=== PATIENT | male | born 1985 | race Caucasian/White ===

== ENCOUNTER 2018-03-31 13:51 | Emergency (ER) | payer OTHER, SELFPAY ==
--- NOTE | 2018-03-31 14:02 | NUR.NOTE ---
yesterday at 1700 pt began to feel weak and developed a fervor PT is unsure of temp. this morning temp was 102F current temp at 1404 is 39.2 no nausea or vomiting
[2018-03-31 14:05] VITALS: BP 122/82; PULSE 132; RESP 15; TEMP 39.2; O2SAT 93
[2018-03-31] MEDS: Acetaminophen 500 MG TAB (14:15)
--- NOTE | 2018-03-31 16:01 | ED.GENADUL_ITS ---
Discharge Plan Disposition Patient Disposition: HOME Condition: Good Discharge Details Chief Complaint: GenMedical Clinical Impression: URI (upper respiratory infection) Primary Care Provider: Dina Chatterjee ED Provider: Lucho Garcia Home Meds and New Rx's Prescriptions: No Action montelukast [Singulair] 10 MG tablet 10 mg PO DAILY RF: 0 atorvastatin 20 mg Tablet 20 mg PO DAILY RF: 0 ProAir HFA 90 mcg/actuation Hfa Aerosol Inhaler 1 puff Inhalation BID RF: 0 Spiriva with HandiHaler 18 mcg Capsule, W/Inhalation Device 1 puff Inhalation PRN PRNRF: 0 Asmanex Twisthaler 220 mcg (14 doses) Aerosol Powdr Breath Activated 2 puff Inhalation BID RF: 0 Symbicort 160-4.5 mcg/actuation Hfa Aerosol Inhaler 1 puff Inhalation DAILY RF: 0 Discharge Instructions Instructions: Upper Respiratory Infection (ED) Additional Instructions: Please take 1000 mg of Tylenol every 6 hours, and 800 mg of ibuprofen every 6 hours for improvement of your symptoms. Please drink 12 cups of fluids daily at minimum . Please continue to use your inhalers as directed. if you notice any worsening of your symptoms, or any new symptoms such as neck pain, headache, vomiting, diarrhea, fever, chills, shortness of breath, chest pain, numbness, weakness, or fainting , please return immediately to the emergency department for reevaluation. Please follow up with your primary care provider as soon as possible for reassessment and reevaluation. As always, it was a pleasure participating in your medical care today. Referrals: Dina Chatterjee [Primary Care Provider] - Medical Decision Making This is a 32-year-old male with past medical history of asthma, who presents today for aches, myalgias, fever and chills. He does have other sick contacts at home with similar symptoms. Physical exam demonstrates no red flags concerning for meningitis, no signs of strep throat. No concerning lung sounds. No evidence of significant hypoxia, tachypnea, or difficulty breathing. On the patient's arrival he was given acetaminophen, and now he is feeling much better. He states that his aches, pains and myalgias have completely resolved. He states that he feels ready to go home, and would like to be discharged. With no concerning physical exams or historical findings concerning for severe concerning infection I do feel this is reasonable. Patient's influenza has returned negative, so he is not a candidate for Tamiflu. Recommend continued fluids, Tylenol and Motrin for fever, and close follow-up with his PCP. We discussed red flags which to immediately return and the patient understands. I have extensively reviewed the treatment plan and discharge instructions with the patient. I have addressed all patient concerns at this time. The patient was made aware of what symptoms to monitor for that would warrant a return to the emergency department. Discussed the plan with the patient, they demonstrate verbal understanding and agreement with our assessment and plan at this time. HPI General Date/Time Provider Initiated Documentation: 03/31/18 15:48 . HPI Narrative: This is a 32-year-old male with no past medical history except for asthma, who presents today for evaluation of fever, aches, myalgias that started today. He has a friend with similar symptoms. He does admit to a fever, he has not taken any antipyretic. He denies any nausea, vomiting, diarrhea, chest p ain, shortness of breath, numbness, tingling, or weakness. He does admit to mild cough that started this morning as well, but it is nonproductive. He denies any recent antibiotic use or hospitalization. He denies any other complaints at this time. He denies any recent surgeries, IV or illicit drug use or pertinent family history. Related Data Home Medications Medication Instructions Recorded Confirmed montelukast [Singulair] 10 mg PO DAILY 12/12/16 03/31/18 albuterol sulfate [ProAir HFA] 1 puff INHALATION BID 03/31/18 03/31/18 atorvastatin 20 mg PO DAILY 03/31/18 03/31/18 budesonide-formoterol [Symbicort] 1 puff INHALATION DAILY 03/31/18 03/31/18 mometasone [Asmanex Twisthaler] 2 puff INHALATION BID 03/31/18 03/31/18 tiotropium bromide [Spiriva with 1 puff INHALATION PRN PRN 03/31/18 03/31/18 HandiHaler] Allergies Allergy/AdvReac Type Severity Reaction Status Date / Time Penicillins Allergy Intermediate Hives Unverified 03/31/18 14:07 General Stated Complaint: GenMedical JUS: 3 Review of Systems Review of Systems All systems reviewed & are unremarkable except as noted in HPI and below PFSH Social History Smoking/Tobacco Use Status: Former Tobacco Use Exam Narrative Exam Narrative: 1.Const: Well-nourished, Well-developed, appearing stated age 2.Eyes: PERRL, no conjunctival injection, and symmetrical lids. 3.ENT: Atraumatic external nose and ears. Moist MM. Neck: Symmetric, trachea midline, No thyromegaly. Patient demonstrates good movement of cervical neck. There is no nuchal rigidity, no nuchal tenderness. Patient is able to flex the neck without any difficulty or significant pain. Negative Kernig's and Brudzinski sign. No significant erythema in the posterior oropharynx. No sinus tenderness. Minimal runny nose. 4.CVS: +S1/S2, No murmurs or gallops. Peripheral pulses 2+ and equal in all extremities. Brisk capillary refill in all extremities. 5.RESP: Unlabored respiratory effort. Clear to auscultation bilaterally. No wheezes rales or rhonchi 6.GI: Soft, Nontender/Nondistended, No hepatosplenomegaly. No guarding or rebound. 7.MSK: Normocephalic/Atraumatic, Extremities w/o deformity or ttp No cyanosis or clubbing, Normal movement of all extremities. No calf tender 8.Skin: Warm, Dry. No rashes or lesions. 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 Sensation grossly intact, no focal neurologic deficits. 10.Psych: (AAO) x3. Appropriate mood and affect Course Vital Signs Temperature 39.2 C H 03/31/18 14:05 Pulse 132 H 03/31/18 14:05 Respiratory Rate 15 03/31/18 14:05 Blood Pressure 122/82 03/31/18 14:05 Pulse Oximetry 93 L 03/31/18 14:05 Temperature 39.2 C H 03/31/18 14:05 Temperature Source Skin 03/31/18 14:05 Pulse 132 H 03/31/18 14:05 Respiratory Rate 15 03/31/18 14:05 Respiratory Effort 03/31/18 14:13 Blood Pressure 122/82 03/31/18 14:05 Blood Pressure Position Sitting 03/31/18 14:05 Pulse Oximetry 93 L 02/02/19 14:05 Oxygen Delivery Method Room Air 03/31/18 14:05 Oxygen Flow Rate 0 03/31/18 14:05 Pain Level 3 03/31/18 14:05 Lab/Test Results Lab/Test Results: 03/31/18 14:20 Nasopharynx Influenza Types A,B Antigen - Final
[2018-03-31 16:14] VITALS: RESP 16
== END 2018-03-31 16:13 | disposition home or self-care (01) ==
PROVIDERS: Emergency Provider Student in an Organized Health Care Education/Training Program
DX: J06.9 Acute upper respiratory infection, unspecified (principal); J45.909 Unspecified asthma, uncomplicated
CPT/HCPCS: 87449; 99282

== ENCOUNTER 2018-08-14 06:21 | Emergency (ER) | payer OTHER, SELFPAY ==
[2018-08-14 06:24] VITALS: BP 146/97; PULSE 84; RESP 16; TEMP 37.1; O2SAT 98
--- NOTE | 2018-08-14 06:44 | ED.GENADUL_ITS ---
Discharge Plan Disposition Patient Disposition: HOME Condition: Improving Discharge Details Chief Complaint: RespSymp Clinical Impression: Acute bronchitis Primary Care Provider: Dina Chatterjee ED Provider: Rasta Kramer Home Meds and New Rx's Prescriptions: New prednisone 20 mg tablet 40 mg PO DAILY 5 Days Qty: 10 RF: 0 azithromycin 250 mg tablet See Rx Instructions .ROUTE .COMPLEX Qty: 6 RF: 0 No Action montelukast [Singulair] 10 MG tablet 10 mg PO DAILY RF: 0 atorvastatin 20 mg Tablet 20 mg PO DAILY RF: 0 albuterol sulfate [ProAir HFA] 90 mcg/actuation Hfa Aerosol Inhaler 1 puff Inhalation BID RF: 0 Spiriva with HandiHaler 18 mcg Capsule, W/Inhalation Device 1 puff Inhalation PRN PRNRF: 0 Asmanex Twisthaler 220 mcg (14 doses) Aerosol Powdr Breath Activated 2 puff Inhalation BID RF: 0 Symbicort 160-4.5 mcg/actuation Hfa Aerosol Inhaler 1 puff Inhalation DAILY RF: 0 Discharge Instructions Instructions: Acute Bronchitis (ED) Additional Instructions: Return for recheck if you have difficulty breathing, using the inhaler every 2 hours, or any other acute concerns. Take medications as prescribed. Continue your regular medications. Home to rest today Medical Decision Making 33-year-old male with a history of emphysema, who presents from home with 4 to 5 days of cough, congestion, production of sputum with mild increase in his use of inhaler. He is afebrile, well-appearing, oxygenating normally, without wheeze on exam. Does appear to have acute bronchitis and describes a mild component of bronchospasm. I will place him on a course of azithromycin and prednisone. He is stable and appropriate for discharge to home. He understands return precautions to the ED. He will follow-up with the [place] if needed for recheck. HPI General Mode of arrival: ambulatory . Date/Time Provider Initiated Documentation: 08/14/18 06:37 . Limitations to Documentation: no limitations . Information obtained by: patient . History of Present Illness 33 year old M presents to the emergency department with the chief complaint of Cough, congestion, production of sputum, mild wheeze, described as moderate and similar to prior episodes, Quality is described as constant, and is localized to the chest. Patient reports no radiation. Patient started experiencing this day(s) and it has been constant. No relieving factors improve symptom(s), No exacerbating factors reported . Patient notes cough; denies fever/chills and shortness of breath. Patient did receive the following treatments prior to arrival, none Related Data Home Medications Medication Instructions Recorded Confirmed montelukast [Singulair] 10 mg PO DAILY 12/12/16 08/14/18 albuterol sulfate [ProAir HFA] 1 puff INHALATION BID 03/31/18 08/14/18 atorvastatin 20 mg PO DAILY 03/31/18 08/14/18 budesonide-formoterol [Symbicort] 1 puff INHALATION DAILY 03/31/18 08/14/18 mometasone [Asmanex Twisthaler] 2 puff INHALATION BID 03/31/18 08/14/18 tiotropium bromide [Spiriva with 1 puff INHALATION PRN PRN 03/31/18 08/14/18 HandiHaler] azithromycin See Rx Instructions .ROUTE 08/14/18 .COMPLEX #6 tab prednisone 40 mg PO DAILY 5 Days #10 tab 08/14/18 Previous Rx's Medication Instructions Recorded azithromycin See Rx Instructions .ROUTE 08/14/18 .COMPLEX #6 tab prednisone 40 mg PO DAILY 5 Days #10 tab 08/14/18 Allergies Allergy/AdvReac Type Severity Reaction Status Date / Time Penicillins Allergy Intermediate Hives Unverified 08/14/18 06:27 General Stated Complaint: RespSymp JUS: 4 Review of Systems Review of Systems No chest pain, no difficulty breathing, no recent travel. 6 systems reviewed and otherwise negative [facility] Medical History Emphysema lung (Acute) Asthma (Chronic) Social History Smoking/Tobacco Use Status: Former Tobacco Use Alcohol Intake: current Alcohol Intake frequency: holidays/special occasions only Drug use: Socially Substance use type: marijuana Do you feel safe in your relationship?: Yes Additional Social history: pt is not alone to assess privately Exam Narrative Exam Narrative: GEN: awake, alert, oriented 3. Pleasant, well groomed, interactive. HEAD: Normocephalic, atraumatic ENT: Mucous membranes moist, oropharynx unremarkable, External ear exam unremarkable EYES: PERRL, EOMI NECK: Full ROM, no ELEN, no menigismus CHEST/RESP: Nontender, clear to auscultation bilateral, no wheeze/rhonchi/rales CARDIOVASCULAR: RRR, no murmur, rub derrick. 2+ Rad pulse bilateral ABDOMEN: Soft, nontender, no mass. +Bowel sounds EXT: Full ROM, no edema, no rash Neuro: Grossly normal neurologic exam, conversant, interactive. Psych: Speech fluent, thoughts congruent, affect normal Course Vital Signs Temperature 37.1 C 08/14/18 06:24 Pulse 84 08/14/18 06:24 Respiratory Rate 16 08/14/18 06:24 Blood Pressure 146/97 H 08/14/18 06:24 Pulse Oximetry 98 08/14/18 06:24 Temperature 37.1 C 08/14/18 06:24 Temperature Source Skin 08/14/18 06:24 Pulse 84 08/14/18 06:24 Respiratory Rate 16 08/14/18 06:24 Respiratory Effort Non-Labored 08/14/18 06:29 Respiratory Depth Normal 08/14/18 06:29 Blood Pressure 146/97 H 08/14/18 06:24 Pulse Oximetry 98 08/14/18 06:24 Pain Level 2 08/14/18 06:24
== END 2018-08-14 06:49 | disposition home or self-care (01) ==
PROVIDERS: Emergency Provider Emergency Medicine
DX: J20.9 Acute bronchitis, unspecified (principal); Z87.891 Personal history of nicotine dependence
CPT/HCPCS: 99283

== ENCOUNTER 2020-05-16 08:58 | Emergency (ER) | payer OTHER, SELFPAY ==
[2020-05-16] VITALS (46 sets, daily range): BP systolic 116–149; BP diastolic 55–98; PULSE 84–131; RESP 7–24; TEMP 37.3–38.3; O2SAT 93–100
--- NOTE | 2020-05-16 09:30 | DI.RAD_ITS ---
EXAM: XR PORTABLE CHEST AP CLINICAL HISTORY: cough, fever. TECHNIQUE: 2D digital imaging was performed. COMPARISON: CR CHEST 2 VIEWS PA,LAT from 12/12/2016 FINDINGS: Heart size is normal. The mediastinum is not widened. There are no new infiltrates nor pleural effusions. No pneumothorax. No pulmonary edema. IMPRESSION: No acute pulmonary findings on this single AP portable view of the chest. DATA REPOSITORY: RADIATION DOSE DELIVERED:
--- NOTE | 2020-05-16 09:34 | ED.GENADUL_ITS ---
Discharge Plan Disposition Patient Disposition: HOME Condition: Good Discharge Details Clinical Impression: COVID-19 Primary Care Provider: Dina Chatterjee ED Provider: Belle Vera Home Meds and New Rx's Prescriptions: New prednisone 20 mg tablet 40 mg PO DAILY Qty: 10 RF: 0 No Action montelukast [Singulair] 10 MG tablet 10 mg PO DAILY RF: 0 albuterol sulfate [ProAir HFA] 90 mcg/actuation Hfa Aerosol Inhaler 1 puff Inhalation BID RF: 0 Spiriva with HandiHaler 18 mcg Capsule, W/Inhalation Device 1 puff Inhalation PRN PRNRF: 0 Asmanex Twisthaler 220 mcg (14 doses) Aerosol Powdr Breath Activated 2 puff Inhalation BID RF: 0 budesonide-formoterol [Symbicort] 160-4.5 mcg/actuation Hfa Aerosol Inhaler 1 puff Inhalation DAILY RF: 0 Discharge Instructions Instructions: Viral Syndrome (ED) Additional Instructions: You must isolate 7 to 14 days, and the CDC does state that you can resume normal activities after 10 days if you are completely asymptomatic which means no cough, fever, shortness of breath Your family member should all quarantine for the next 7 days and have a negative Covid test at this time Should they develop symptoms, they may have Covid test ordered by their primary care physician Take prednisone as prescribed, you do not need your next dose until tomorrow Use your pulse oximeter at home if you begin to feel worse, check your oxygen level for several minutes and if it dips below 90% she should return to the emergency room Take ibuprofen 600 mg every 8 hours with food Take Tylenol 650 mg 1 g every 4-6 hours as needed for fever control Keep your self hydrated Rest Wash your hands frequently and wear a mask If you have members in your home, they must also quarantine and should not return home until the end of 7 days without symptoms or have a negative test Medical Decision Making Patient did have a prolonged stay in the emergency room as he maintains fever t achycardia He was observed for approximately 3 and half hours and had ambulatory 1 minute oxygen saturation of 98% and noticed distress He was tachycardic with a Tylenol, Motrin 2 L of fluid were completed, patient received IV Decadron, Ibuprofen, 15 of Toradol, and a gram of Tylenol At time of discharge heart rate had decreased into the high 90s and she was symptomatically very much improved Heat yes comfortable discharge home Patient is aware that he is at higher risk because of his history of COPD and being COVID-19 positive He was supplied with a pulse oximeter with close return precautions discussed in detail including to return immediately if oxygen saturation was below 90% He was given a prescription for prednisone with history of COPD and feeling short of breath He does not have obvious pneumonia, no indication for antibiotics Hip been made aware regarding isolation procedures and family members at home she will quarantine, His given low threshold to return should he have new or worsening complaints fall Differential Diagnosis Differential Diagnosis: COPD exacerbation, COVID-19, pneumonia, bronchitis Medical Records Medical records reviewed: Yes I reviewed the patient's medical records. Lab Data Lab results reviewed: Yes I reviewed the patient's lab results. HPI This 34-year-old gentleman with past medical history of COPD and asthma presents with report of acute onset of fever, cough, chills, myalgias yesterday at 3 PM. He felt fine in the morning reportedly. He states he presents today secondary to pain and generalized weakness. He denies any chest discomfort or pleuritic chest pain. He denies any swelling or isolated tenderness to his calves. He denies any urinary complaints. He has used his nebulizers prior to arrival feeling mild improvement. He denies nausea, vomiting, diarrhea. General Date/Time Provider Initiated Documentation: 05/16/20 08:58 . Related Data Home Medications Medication Instructions Recorded Confirmed montelukast [Singulair] 10 mg PO DAILY 12/12/16 05/16/20 albuterol sulfate [ProAir HFA] 1 puff INHALATION BID 03/31/18 05/16/20 budesonide-formoterol [Symbicort] 1 puff INHALATION DAILY 03/31/18 05/16/20 mometasone [Asmanex Twisthaler] 2 puff INHALATION BID 03/31/18 05/16/20 tiotropium bromide [Spiriva with 1 puff INHALATION PRN PRN 03/31/18 05/16/20 HandiHaler] prednisone 40 mg PO DAILY #10 tab 05/16/20 Previous Rx's Medication Instructions Recorded prednisone 40 mg PO DAILY #10 tab 05/16/20 Allergies Allergy/AdvReac Type Severity Reaction Status Date / Time Penicillins Allergy Intermediate Hives Unverified 05/16/20 09:19 General Stated Complaint: RespSymp JUS: 3 Review of Systems Narrative: Review of systems obtained x7 aside from where indicated in HPI [facility] Medical History (Updated 05/16/20 @ 13:06 by ALYSSA Sinclair) Asthma Emphysema lung after exposure in [facility] Social History Smoking/Tobacco Use Status: Former Tobacco Use Smoking risk assessment performed?: Yes Alcohol Intake: current Alcohol Intake frequency: a few times a week Alcohol type: beer Drug use: Socially Substance use type: marijuana Do you feel safe at home: Yes Do you feel safe in your relationship?: Yes Exam Const General: cooperative and no acute distress Neck Other: No meningismus Resp Effort & Inspection: tachypneic and no use of accessory muscles Other: Lungs clear to auscultation bilaterally Cardio Rate: tachycardic Rhythm: regular rhythm GI Other: Abdomen nontender Skin General skin exam: no rashes or lesions noted Neuro General: patient alert and patient oriented x3 Extrem Other: Mild symmetrical tenderness without swelling Course Vital Signs Vital signs: Vital Signs Temperature 37.5 C 05/16/20 09:07 Pulse 115 H 05/16/20 09:07 Respiratory Rate 21 05/16/20 09:07 Blood Pressure 131/75 05/16/20 09:07 Pulse Oximetry 99 05/16/20 09:07 Temperature 37.5 C 05/16/20 09:07 Temperature Source Temporal Artery Scan 05/16/20 09:07 Pulse 115 H 05/16/20 09:07 Respiratory Rate 21 05/16/20 09:07 Respiratory Effort 05/16/20 09:20 Blood Pressure 131/75 05/16/20 09:07 Blood Pressure Position Supine 05/16/20 09:07 Pulse Oximetry 99 05/16/20 09:07 Oxygen Delivery Method Room Air 05/16/20 09:07 Oxygen Flow Rate 0 05/16/20 09:07 Pain Level 6 05/16/20 09:07 Comment 05/16/20 09:07
[2020-05-16 09:41] LABS: Abs Immature Grans 0.13 10^3/uL (0.0-0.06); Absolute Basophil Count 0.04 10^3/uL (0.0-0.2); Absolute Eosinophil Count 0.03 10^3/uL (0.0-0.7); Absolute Lymphocyte Count 0.31 10^3/uL (1.2-3.4); Absolute Monocyte Count 0.48 10^3/uL (0.1-0.8); Basophils % 0.7; Eosinophils % 0.5; HCT 48.4 % (40.0-50.0); HGB 16.8 g/dL (13.5-17.5); Immature Grans % 2.2; Lymphocytes % 5.2; MCH 29.8 pg (27.0-33.0); MCHC 34.7 % (32.0-36.0); MCV 85.8 fL (80-95); MPV 9.8 fL (8.0-11.0); Neutrophils % 83.4; Nucleated RBC 0 %; Platelet Count 190 10^3/uL (130-400); RBC 5.64 10^6/uL (4.36-5.78); RDW 11.7 % (11.8-14.1); RDW-SD 36.4 fL; WBC 5.99 10^3/uL (4.4-10.8)
[2020-05-16] MEDS: Ketorolac 15 MG/ML VIAL IVP (09:45)
[2020-05-16] MEDS: Normal Saline 1,000 ML 1000 ML IV ×2 (09:45→11:23)
[2020-05-16] MEDS: Acetaminophen 500 MG TAB 1000 MG PO (09:45)
[2020-05-16] MEDS: Dexamethasone 10 MG/ML VIAL IVP (09:45)
[2020-05-16 09:54] LABS: ALT 52 U/L (16-63); AST 18 U/L (15-37); Albumin 3.5 g/dL (3.4-5.0); Alkaline Phosphatase 74 U/L (46-116); Anion Gap 10.8 mmol/L (3-11); BUN 12 mg/dL (7-18); Bilirubin, Total 1.1 mg/dL (0.2-1.0); CO2 26.2 mmol/L (21.0-32.0); CREATININE 1.4 mg/dL (0.70-1.30); Calcium 8.6 mg/dL (8.5-10.1); Chloride 103 mmol/L (98-107); Estimated GFR 58.73 (mL/min/1.73m2); Glucose 95 mg/dL (74-106); Potassium 3.7 mmol/L (3.5-5.1); Sodium 140 mmol/L (136-145); Total Protein 7.1 g/dL (6.4-8.2)
[2020-05-16 10:09] LABS: Bilirubin Negative (Negative); Blood Negative (Negative); Clarity Clear (Clear); Glucose Negative (Negative); Ketones Negative (Negative); Leukocyte Esterase Negative (Negative); Nitrite Negative (Negative); Specific Gravity 1.025 (1.005-1.025); Urobilinogen 0.2 EU/dL (Up TO 0.2); pH 7.5 (5-8)
--- NOTE | 2020-05-16 10:29 | DI.VRAD_ITS ---
PROCEDURE INFORMATION: Exam: XR Chest Exam date and time: 05/16/2020 10:16 AM Age: 34 years old Clinical indication: Cough and fever TECHNIQUE: Imaging protocol: XR of the chest Views: 1 view. COMPARISON: CR CHEST 2 VIEWS PA,LAT 12/12/2016 8:24 PM FINDINGS: Lungs: Unremarkable. No consolidation. Pleural spaces: Unremarkable. No pleural effusion. No pneumothorax. Heart/Mediastinum: Unremarkable. No cardiomegaly. Bones/joints: Unremarkable. IMPRESSION: No acute findings. Dictated and Authenticated by: Gay Crockett MD. Ordering:GINO Odonnell MD
[2020-05-16 10:46] LABS: COVID-19 PCR POSITIVE (Negative)
[2020-05-16] MEDS: Ibuprofen 600 MG TAB PO (12:24)
--- OUTSIDE RECORDS SUMMARY | 2020-05-16 12:47 | XMS_ITS | Encounter Summary ---
:1985 Author Organization Department of [facility] rs Address [address] [place] [address] Care Team Providers Name Role Phone CHEN KUMAR Primary Care Provider Unavailable Selected Encounter This section includes the information on record at [place] for the Encounter. Date/Time Encounter Type Encounter Reason Provider Source Description Apr 10, 2020 HC PRO PHONE TELEPHONE PRIMARY ICD-10-CM Z71.89 Horacio CHO 09:30 AM CALL 5-10 MIN CARE Other specified M counseling with Provider Comments: Counseling,Oth Specified IHE Encounter Template Text not used by [facility] Assessments - Encounter Diagnoses This section includes the primary and secondary diagnoses documented forthe Encounter. Date/Time Primary/Secondary Diagnosis Name Provider Source Diagnosis Apr 10, 2020 PRIMARY Other specified CHERI CHO CBO C 09:30 AM counseling Plan of Treatment: Future Appointments (+ 6 months) and Future Tests (+/- 45 days) The Plan of Treatment section includes future care activities for the patient from all [place] treatment facilities. This section includes future appointments and future orders which are active, pending or scheduled.Future Appointments This section includes appointments that were scheduled to occur 6 months from the date of the Encounter, up to a maximum of 20 appointments. The [facility] Appointment Date/Time Appointment Type Appointment Facili ty Name May 27, 2020 08:30 AM AMBULATORY - MEDICINE [facility] Sep 07, 2020 03:30 PM AMBULATORY - MEDICINE [facility] Active, Pending, and Scheduled Orders This section includes a listing of several types of active, pending, and scheduled orders, including clinic medications orders, diagnostic test orders, procedure orders and consult orders; where the start date of the order is 45 days before the date of the Encounter or 45 days after the date of the Encounter. The data comes from all [place] treatment facilities. Test Date/Time Test Type Test Details Facility Name Mar 10, 2020 08:45 AM Consult Order COMMUNITY CARE-PULMONARY [facility] Cons Senior Accounting Clerk's Choice Surgical Procedures: All associated to the encounter This section includes all Surgical Procedures and Surgical Procedure Notes associated to the Encounter.Surgical Procedures This section includes all Surgical Procedures associated to the Encounter.Surgical Procedure Date/Time Procedure Procedure Type Procedure Provider Source Qualifiers Apr 10, 2020 PHONE CALL BY HC PRO PHONE CHERI CHO 09:30 AM HC PROF 5-10 CALL 5-10 MIN M MIN Surgical Notes There are no notes associated with this procedure. Lab Results: +/- 30 days of the encounter This section includes the Chemistry and Hematology Lab Results on record with [place] for the patient. Radiology Reports and Pathology Reports are provided separately, in subsequent sections.Lab Results This section contains the Chemistry/Hematology Results that were resulted 30 days before or 30 days after the date of the Encounter. Date/Time Source Result Type Result - Unit Interpretation Reference Range Comment Apr 08, 2020 11:44 [facility] COVID-19 AND FLU/RSV Specimen Type: NASOPHARYNX AM [facility] DIAG PANEL(WRJ) Comment: Tests performed on [employer] Genexpert (405) Ordering Provide r: KLEBER OLEA JR Report Released Date/Time: Apr 08, 2020 09:53 AM Reporting [facility] [address] [facility] [place] [address] Performing Lab: [facility] [address] [facility] [place] [address] FLU A(PCR) NEGATIVE NEGATIVE FLU B(PCR) NEGATIVE NEGATIVE RSV(PCR) NEGATIVE NEGATIVE COVID-19([id number]) NOT DETECTED NOT DETECTED Encounter Notes: All associated encounter notes This section contains the clinical notes associated to the Encounter. Date/Time Encounter Note(s) Provider Source Apr 10, 2020 12:51 PM TELEPHONE ENCOUNTER NOTE: CHERI CHO [facility] LOCAL TITLE: COVID-19 TELEPHONE FOLLOW-UP STANDARD TITLE: TELEPHONE ENCOUNTER NOTE DATE OF NOTE: APR 10, 2020@12:51 ENTRY DATE: APR 10, 2020@12:51:10 AUTHOR: CHERI CHO EXP COSIGNER: URGENCY: STATUS: COMPLETED COVID-19 Telephone Follow-Up Symptoms: The patient reports no fever. The patient reports no new or worsening co ugh or shortness of breath. The patient reports no cold or flu-like sy mptoms. The patient reports no new onset of diarrh ea, nausea or vomiting. The patient reports no new onset of headac he, loss of taste or loss of smell. The patient reports no exposure to someone with COVID-19 within the past 2 weeks. COVID-19 Immunization Status There is no record of a current COVID-19 v accination. Still tired, no other SX at this timeDoes not feel he needs to be followed nor needs her PCP at this time Care Disposition The patient is improving. Patient can care for self at home. Plan and Patient Education patient does not feel follow up is needed Time spent: 4 minutes /dipak CHO LPN Signed: 04/10/2020 12:52 Apr 10, 2020 10:48 AM TELEPHONE ENCOUNTER NOTE: CHERI CHO [facility] LOCAL TITLE: COVID-19 TELEPHONE FOLLOW-UP STANDARD TITLE: TELEPHONE ENCOUNTER NOTE DATE OF NOTE: APR 10, 2020@10:48 ENTRY DATE: APR 10, 2020@10:48:54 AUTHOR: CHERI CHO EXP COSIGNER: URGENCY: STATUS: COMPLETED COVID-19 Telephone Follow-Up Unable to reach patient. Left message to call malena briceño. Comment: Left message for patient to return ca ll /dipak CHO LPN Signed: 04/10/2020 10:51
--- OUTSIDE RECORDS SUMMARY | 2020-05-16 12:47 | XMS_ITS ---
:1985 Author Care Team Providers Name Role Phone XAVI NUR PA-C Primary Care Provider [phone] Allergies Code Code System Name Reaction Severity Status Onset Penicillins ? ? Active ? Medications Name Status Start Date Stop Date ? ? albuterol sulfate HFA 90 mcg/actuation aerosol inhaler Active ? Not available Inhale 2 puffs every 4 hours by inhalation route as needed. atorvastatin 20 mg tablet Active ? Not av ailable Take 1 tablet every day by oral route. mometasone 220 mcg/actuation(120 doses)breath activated powder i nhaler Active ? Not available Inhale 2 puffs twice a day by inhalation route. montelukast 10 mg tablet Active ? Not georgina ilable Take 1 tablet every day by oral route. Paxil 20 mg tablet Active ? Not available Take 1 tablet every day by oral route. Spiriva with HandiHaler 18 mcg and inhalation capsules Active ? Not available Inhale 1 capsule every day by inhalation route. Symbicort 160 mcg-4.5 mcg/actuation HFA aerosol inhaler Active ? Not available Inhale 2 puffs twice a day by inhalation route. Problems Name Status Onset Date Source ? 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 Posttraumatic Stress Disorder Active 11/06/2018 ? Depressive Disorder Active 11/06/2018 ? Asthma Unknown 11/06/2018 ? Moderate Persistent Asthma Active 11/06/2018 ? Procedures None recorded. Results Lab Results Date Name Specimen Result Interpretation Description Value Range Status Address ? 04/17/2019 CBC W/ Auto BLD ? Wbc 8.0 5.0-10.0 Final [place] Diff 10*3/uL 10*3/uL [facility] L ab (Internal) : [address] t ? ? BLD ? Rbc 6.00 4.60-6.00 Final [place] 10*6/uL 10*6/uL [facility] L [facility] (Internal) : [address] t ? ? BLD ? Hgb 17.6 g/dL 14.0-18.0 Final Nort h g/dL [facility] L ab (Internal) : [address] t ? ? BLD High Hct 52.2 % 41.0-51.0 Final [facility] Hospital L ab (Internal) : [address] ? ? BLD ? Mcv 87.0 fL 80.0-96.0 Final [facility] Hospital L ab (Internal) : [address] ? ? BLD ? Mch 29.3 pg 26.0-32.0 Final [facility] L ab (Internal) : [address] ? ? BLD ? Mchc 33.7 g/dL 31.0-35.0 Final Nort h g/dL [facility] L ab (Internal) : [address] t ? ? BLD ? Rdw 12.0 % 11.5-14.5 Final [facility] L ab (Internal) : [address] t ? ? BLD ? Plt 219 130-450 Final [place] 10*3/uL 10*3/uL [facility] L ab (Internal) : [address] t 04/17/2019 Differential BLD ? Polys 73 % 40-75 % Final [facility] L ab (Internal) : [address] t ? ? BLD ? Bands 0 % 0-5 % Final [facility] Hospital L ab (Internal) : [address] t ? ? BLD ? Lymphs 20 % 20-50 % Final [facility] Hospital L ab (Internal) : [address] t ? ? BLD ? Phelps 3 % 2-10 % Final [facility] Hospital L ab (Internal) : [address] ? ? BLD ? Eos 0 % 0-6 % Final [facility] Hospital L ab (Internal) : [address] ? ? BLD ? Baso 1 % 0-1 % Final [facility] L ab (Internal) : [address] ? ? BLD ? Atyp Lymph 2 % ? Final [facility] L ab (Internal) : [address] ? ? BLD High Young Forms 1 % 0-0 % [facility] L [facility] (Internal) : [address] Zeus good ? ? BLD ? Plts, Est. adequate adequate Final N orth [facility] L ab (Internal) : [address] ? ? BLD ? RBC normal normal Final [facility] L ab (Internal) : [address] Zeus good 04/17/2019 Neutrophil BLD ? Anc-manual 5.80 ? Mirta l North Count, 10*3/uL [facility] Lab (Anc), Blood (Int ernal): [address], Zeus good 12/17/2018 CBC W/ Auto BLD - Wbc 6.4 5.0-10.0 Final [place] Diff 10*3/uL 10*3/uL [facility] L ab (Internal) : [address] ? ? BLD - Rbc 5.87 4.60-6.00 Final [place] 10*6/uL 10*6/uL [facility] L ab (Internal) : [address] florentino ? ? BLD - Hgb 17.3 g/dL 14.0-18.0 Final Nort h g/dL [facility] L ab (Internal) : [address] florentino ? ? BLD High Hct 51.1 % 41.0-51.0 Final [facility] Hospital L ab (Internal) : [address], Davidkobe florentino ? ? BLD - Mcv 87.1 fL 80.0-96.0 Final [facility] Hospital L ab (Internal) : [address] florentino ? ? BLD - Mch 29.5 pg 26.0-32.0 Final [place] pg [facility] L ab (Internal) : [address] florentino ? ? BLD - Mchc 33.9 g/dL 31.0-35.0 Final Nort h g/dL [facility] L ab (Internal) : [address] ? ? BLD - Rdw 11.5 % 11.5-14.5 Final [facility] Hospital L ab (Internal) : [address] ? ? BLD - Plt 219 130-450 Final [place] 10*3/uL 10*3/uL [facility] L ab (Internal) : [address] 12/17/2018 Differential BLD - Polys 54 % 40-75 % Final [place] , Manual, [facility] L ab (Internal) : [address] ? ? BLD - Bands 0 % 0-5 % Final [facility] Hospital L ab (Internal) : [address] ? ? BLD - Lymphs 37 % 20-50 % Final [facility] Hospital L ab (Internal) : [address] t ? ? BLD - Phelps 8 % 2-10 % Final [facility] Hospital L ab (Internal) : [address] ? ? BLD - Eos 0 % 0-6 % Final [facility] Hospital L ab (Internal) : [address] ? ? BLD - Baso 0 % 0-1 % Final [facility] Hospital L ab (Internal) : [address] t ? ? BLD - Atyp Lymph 0 % ? Final [facility] Hospital L ab (Internal) : [address] t ? ? BLD High Young Forms 1 % 0-0 % Final [facility] Hospital L ab (Internal) : [address] t ? ? BLD - Plts, Est. adequate adequate Final [facility] L ab (Internal) : [address] t ? ? BLD - RBC normal normal Final [facility] L ab (Internal) : [address] 12/17/2018 Neutrophil BLD - Anc-manual 3.45 ? Mirta l [place] Count, 10*3/uL [facility] Hospital Lab (Anc), Blood (Int ernal): [address] 12/17/2018 Ige, Total, S - Ige 69 IU/mL <158 Final [place] Serum IU/mL [facility] L ab (Internal) : [address] 12/17/2018 Onund-1-Ommw ? No ? ? ? trypsin observation (Aat) recorded. Phenotype, Serum Past Encounters 04/17/2019 Moderate Persistent Asthma Ifrah Nj MD: [address] [place] [address], Ph. 12/17/2018 Moderate Persistent Asthma Ifrah Nj MD: [address] [place] [address], Ph. 11/15/2018 Asthma Ifrah Nj MD: [address] [place] [address], Ph. Social History Tobacco Smoking Status Former Smoker Notes: quit , smoked socially for 8 years 5 cigarettes p er week, smoked heavily only while i n the [employer] Vaccine List Vaccine Type influenza, injectable, quadrivalent 11/22/2018 Plan of Care Reminders Provider Appointments None ? ? recorded. Lab None ? ? recorded. Referral None ? ? recorded. Procedures None ? ? recorded. Surgeries None ? ? recorded. Imaging None ? ? recorded. Vitals 04/17/2019 10:30AM Follow Up 30 Height Weight BMI Blood Pressure 177.8 cm 94.3 kg 29.8 kg/m2 149/97 mm[Hg] 12/17/2018 09:30AM Follow Up 30 Height Weight BMI Blood Pressure 177.8 cm 88.5 kg 28 kg/m2 147/90 mm[Hg] 11/15/2018 02:15PM Consult 45 Height Weight BMI Blood Pressure 177.8 cm 85.7 kg 27.1 kg/m2 118/80 mm[Hg]
--- OUTSIDE RECORDS SUMMARY | 2020-05-16 12:47 | XMS_ITS | Encounter Summary ---
:1985 Author Organization Department [facility] rs Address [address] [place] [address] Care Team Providers Name Role Phone CHEN KUMAR Primary Care Provider Unavailable Selected Encounter This section includes the information on record at [place] for the Encounter. Date/Time Encounter Type Encounter Description Reason Provider Source Apr 20, 2020 02:11 Outpatient Encounter ADMIN PAT ACTIVTIES PM (MASNONCT) IHE Encounter Template Text not used by [place] Plan of Treatment: Future Appointments (+ 6 months) and Future Tests (+/- 45 days) The Plan of Treatment section includes future care activities for the patient from all [place] treatment facilities. This section includes future appointments and future orders which are active, pending or scheduled.Future Appointments This section includes appointments that were scheduled to occur 6 months from the date of the Encounter, up to a maximum of 20 appointments. The data comes from all [facility]. Appointment Date/Time Appointment Type Appointment Facili ty [...] the Encounter. The data comes from all [place] treatment facilities. Test Date/Time Test Type Test Details Facility Name Mar 10, 2020 08:45 AM Consult Order COMMUNITY CARE-PULMONARY W [facility]DR[facility] Cons Receiving Weigher's Choice Lab Results: +/- 30 days of the encounter This section includes the Chemistry and Hematology Lab Results on record with [place] for the patient. Radiology Reports and Pathology Reports are provided separately, in subsequent sections.Lab Results This section contains the Chemistry/Hematology Results that were resulted 30 days before or 30 days after the date of the Encounter. Date/Time Source Result Type Result - Unit Interpretation Reference Range Comment Apr 08, 2020 11:44 [facility] COVID-19 AND FLU/RSV Specimen Type: NASOPHARYNX AM [facility] DIAG PANEL(WRJ) Comment: Tests performed on [employer] Genexpert (405) Ordering Provide r: KLEBER OLEA JR Report Released Date/Time: Apr 08, 2020 09:53 AM Reporting Lab: [facility] [address] [facility] [place] [place] [address] Performing Lab: [facility] [address] [facility] [place] [address] FLU A(PCR) NEGATIVE NEGATIVE FLU B(PCR) NEGATIVE NEGATIVE RSV(PCR) NEGATIVE NEGATIVE COVID-19([id number]) NOT DETECTED NOT DETECTED Social History: Smoking Status (Most current) and Tobacco Use (All prior to encounter date) This section includes the most current, and the historical, smoking and tobacco-related health factors from the [place] facility where the Encounter took place.Current Smoking Status This section includes the most current smoking, or tobacco-related health factor, from the [place] facility where the Encounter took place. Date/Time Current Smoking Status Comment Facility Oct 26, 2018 08:43 AM LIFETIME NON-TOBACCO USER [facility] Tobacco Use History This section includes a history of the smoking, or tobacco-related health factors, that were collected on or before the date of the Encounter. The data comes from the [place] facility where the Encounter took place. Date/Time Smoking Status/Tobacco Use Comment Valerie cardona May 04, 2017 11:15 AM LIFETIME NON-TOBACCO USER [facility] Aug 24, 2016 03:16 PM QUIT TOBACCO USE > 7 YEARS AGO [facility] Oct 13, 2015 09:41 AM V1-PT THINKING ABOUT QUIT [facility] TOBACCO USE May 06, 2015 04:02 PM QUIT TOBACCO USE IN PAST YEAR [facility] Oct 15, 2014 11:30 AM V1-PT NOT INTERESTED IN QUIT [facility] TOBACCO USE Oct 01, 2013 08:26 AM QUIT TOBACCO USE IN PAST YEAR [facility] Encounter Notes: All associated encounter notes This section contains the clinical notes associated to the Encounter. Date/Time Encounter Note(s) Provider Source Apr 20, 2020 02:11 PM ADMINISTRATIVE NOTE: JAYA MENG [facility] LOCAL TITLE: Has Admin Note [facility] STANDARD TITLE: ADMINISTRATIVE NOTE DATE OF NOTE: APR 20, 2020@14:11 ENTRY DATE: APR 20, 2020@14:12:05 AUTHOR: JAYA MENG EXP COSIGNER: URGENCY: STATUS: COMPLETED Has Admin Note Has ADDENDA Reason for call Clinic Name:[facility] lead quality technician 1 phone RTC, Clinic CXL/Reschedule 1st call, Letter sent /bianca/ JAYA MENG MSA Signed: 04/20/2020 14:12 04/30/2020 ADDENDUM STATUS: COMPLETED Second call to r/s. Second letter sent. /bianca/ SOILA OCASIO Senior Accountant Signed: 04/30/2020 15:35
--- OUTSIDE RECORDS SUMMARY | 2020-05-16 12:47 | XMS_ITS | Encounter Summary ---
:1985 Author Organization Department of [facility] rs Address [address] [place] [address] Care Team Providers Name Role Phone CHEN KUMAR Primary Care Provider Unavailable Selected Encounter This section includes the information on record at [place] for the Encounter. Date/Time Encounter Type Encounter Reason Provider Source Description Apr 08, 2020 08:27 Outpatient TELEPHONE TRIAGE DELROY SANDERS AM Encounter CHEN E Encounter Template Text not used by [place] Plan of Treatment: Future Appointments (+ 6 months) and Future Tests (+/- 45 days) The Plan of Treatment section includes future care activities for the patient from all [place] treatment facilities. This section includes future appointments and future orders which are active, pending or scheduled.Future Appointments This section includes appointments that were scheduled to occur 6 months from the date of the Encounter, up to a maximum of 20 appointments. The data comes from all [facility]. Appointment Date/Time Appointment Type Appointment Facili ty Name Apr 10, 2020 09:30 AM AMBULATORY - MEDICINE [facility] May 27, 2020 08:30 AM AMBULATORY - MEDICINE [facility] Sep 07, 2020 03:[address] [facility] Active, Pending, and Scheduled Orders This section includes a listing of several types of active, pending, and scheduled orders, including clinic medications orders, diagnostic test orders, procedure orders and consult orders; where the start date of the order is 45 days before the date of the Encounter or 45 days after the date of the Encounter. The data comes from all [place] treatment facilities. Test Date/Time Test Type Test Details Facility Name Mar 10, 2020 08:45 AM Consult Order COMMUNITY CARE-PULMONARY [facility] Cons Director Safety's Choice Lab Results: +/- 30 days of the encounter This section includes the Chemistry and Hematology Lab Results on record with [place] for the patient. Radiology Reports and Pathology Reports are provided separately, in subsequent sections.Lab Results This section contains the Chemistry/Hematology Results that were resulted 30 days before or 30 days after the date of the Encounter. Date/Time Source Result Type Result - Unit Interpretation Reference Range Comment Apr 08, 2020 11:44 [facility] AND FLU/RSV Specimen Type: NASOPHARYNX AM [facility] DIAG PANEL(WRJ) Comment: Tests performed on [employer] Genexpert (405) Ordering Provide r: SYED OLEA JR Report Released Date/Time: Apr 08, 2020 09:53 AM Reporting Lab: [facility] [address] [facility] [place] [address] Performing Lab: [facility] [address] [facility] [place] [address] FLU A(PCR) NEGATIVE NEGATIVE FLU B(PCR) NEGATIVE NEGATIVE RSV(PCR) NEGATIVE NEGATIVE COVID-19([id number]) NOT DETECTED NOT DETECTED Social History: Smoking Status (Most current) and Tobacco Use (All prior to encounter date) This section includes the most current, and the historical, smoking and tobacco-related health factors from the [place] facility where the Encounter took place.Current Smoking Status This section includes the most current smoking, or tobacco-related health factor, from the [place] facility where the Encounter took place. Date/Time Current Smoking Status Comment Facility Oct 26, 2018 08:43 AM LIFETIME NON-TOBACCO USER [facility] Tobacco Use History This section includes a history of the smoking, or tobacco-related health factors, that were collected on or before the date of the Encounter. The data comes from the [place] facility where the Encounter took place. Date/Time Smoking Status/Tobacco Use Comment Valerie avila May 04, 2017 11:15 AM LIFETIME NON-TOBACCO USER [facility] Aug 24, 2016 03:16 PM QUIT TOBACCO USE > [address] [facility] Oct 13, 2015 09:41 AM V1-PT THINKING ABOUT QUIT [facility] TOBACCO USE May 06, 2015 04:02 PM QUIT TOBACCO USE IN PAST YEAR [facility] Oct 15, 2014 11:30 AM V1-PT NOT INTERESTED IN QUIT [facility] TOBACCO USE Oct 01, 2013 08:26 AM QUIT TOBACCO USE IN PAST YEAR [facility] Encounter Notes: All associated encounter notes This section contains the clinical notes associated to the Encounter. Date/Time Encounter Note(s) Provider Source Apr 08, 2020 08:27 AM TELEPHONE ENCOUNTER NOTE: EVELIO SANDERS [facility] LOCAL TITLE: VISN 1 CLINICAL CONTACT CENTER [facility] STANDARD TITLE: TELEPHONE ENCOUNTER NOTE DATE OF NOTE: APR 08, 2020@08:27:59 ENTRY DATE: APR 08, 2020@08:32:20 AUTHOR: EVELIO SANDERS EXP COSIGNER: URGENCY: STATUS: COMPLETED [facility] Has ADDEND A Type of call: SYMPTOM. Caller Response: *OTHER SPOUSE called in for CHRISTINESTEVE Dumas ([phone]) . Comments: patients calling to report that he feels th at might have covid started 2 days ago diarrhea vomiting pressure pain in his face (sinus) coughing - productive - clear in color no fever chills last night achy unknown if exposed to anyone Evaluation/Management Code: HC PRO PHONE CALL 5- 10 MIN ([id number]). Original call started at: APR 08, 2020 @ 08:12 ( Call was suspended) - PHUONG LEE APR 08, 2020@08:12:41 - MAR 302020@08:14:48 Ending at: 04/08/2020 @ 8:31:57 AM Length: 6 minutes. (Call was suspended. This call length is the total amount of time spent active in [employer] Record Wet Pan Operator.) Author: EVELIO SANDERS Caller Area: * [place] Chief Complaint: Not applicable to call. Nurse Notes: Pls see note on Gabriela [phone]. They are a nd and looking for same CODID appt with one phone call. This patient has below symptoms but also chills(did not measure temp) and dry cough. Will attach to [employer] schedulers for test call and appt time. Thanks. Class Code: Other specified counseling. Contact Patient's Email Address: [email or web address] /bianca/ EVELIO SANDERS REGISTERED NURSE Signed: 04/08/2020 08:32 Receipt Acknowledged By: 04/08/2020 08:54 /bianca/ NELY CURRY 04/08/2020 ADDENDUM STATUS: COMPLETED VVC test not needed. h as already done this and is going to train this vet. VVC scheduled today at 10:00 with Syed Ley s Info Only: [facility] Capable: Patient has successfully tested or used [facility] V [employer] Connect. /bianca/ NELY CURRY Signed: 04/08/2020 08:54
--- OUTSIDE RECORDS SUMMARY | 2020-05-16 12:47 | XMS_ITS | Encounter Summary ---
:1985 Author Organization [facility] rs Address [address] [place] [address] Care Team Providers Name Role Phone CHEN KUMRA Primary Care Provider Unavailable Selected Encounter This section includes the information on record at [place] for the Encounter. Date/Time Encounter Type Encounter Reason Provider Source Description Mar 09, 2020 Outpatient TELEPHONE/MEDICIN ICD-10-CM J45.40 BERNARDO PALM 02:25 PM Encounter E Moderate persistent asthma, uncomplicated with Provider Comments: Asthma sometimes restricts exercise (SCT [id number]) IHE Encounter Template Text not used by [facility] Assessments - Encounter Diagnoses This section includes the primary and secondary diagnoses documented forthe Encounter. Date/Time Primary/Secondary Diagnosis Name Provider Source Diagnosis Mar 09, 2020 PRIMARY Moderate persistent NÉSTORBERNARDO RI SALBADOR 02:25 PM asthma, T [facility] uncomplicated Plan of Treatment: Future Appointments (+ 6 months) and Future Tests (+/- 45 days) The Plan of Treatment section includes future care activities for the patient from all [place] treatment facilities. This section includes future appointments and future orders which are active, pending or scheduled.Future Appointments This section includes appointments that were scheduled to occur 6 months from the date of the Encounter, up to a maximum of 20 appointments. The [facility] Appointment Date/Time Appointment Type Appointment Facili ty Name Apr 07, 2020 02:30 PM AMBULATORY - SURGERY [facility] Apr 08, 2020 10:00 AM AMBULATORY - MEDICINE [facility] Apr 08, 2020 11:30 AM AMBULATORY - MEDICINE [facility] Apr 10, 2020 09:30 AM AMBULATORY - MEDICINE [facility] May 27, 2020 08:30 AM AMBULATORY - MEDICINE [facility] Active, Pending, and Scheduled Orders This section includes a listing of several types of active, pending, and scheduled orders, including clinic medications orders, diagnostic test orders, procedure orders and consult orders; where the start date of the order is 45 days before the date of the Encounter or 45 days after the date of the Encounter. The data comes from all [place] treatment facilities. Test Date/Time Test Type Test Details Facility Name Mar 10, 2020 08:45 AM Consult Order COMMUNITY CARE-PULMONARY [facility] Cons Finding Fastener's Choice Lab Results: +/- 30 days of the encounter This section includes the Chemistry and Hematology Lab Results on record with [place] for the patient. Radiology Reports and Pathology Reports are provided separately, in subsequent sections.Lab Results This section contains the Chemistry/Hematology Results that were resulted 30 days before or 30 days after the date of the Encounter. Date/Time Source Result Type Result - Unit Interpretation Reference Range Comment Apr 08, 2020 11:44 [facility] COVID-19 AND FLU/RSV Specimen Type: NASOPHARYNX AM [facility] DIAG PANEL(WRJ) Comment: Tests performed on [employer] Genexpert (405) Ordering Provide r: KLEBER OLEA JR Report Released Date/Time: Apr 08, 2020 09:53 AM Reporting Lab: [facility] [address] [facility] [place] [address] Performing Lab: [address] [place] [address] FLU A(PCR) NEGATIVE NEGATIVE FLU B(PCR) NEGATIVE NEGATIVE RSV(PCR) NEGATIVE NEGATIVE COVID-19([id number]) NOT DETECTED NOT DETECTED Social History: Smoking Status (Most current) and Tobacco Use (All prior to encounter date) This section includes the most current, and the historical, smoking and tobacco-related health factors from the [place] facility where the Encounter took place.Current Smoking Status This section includes the most current smoking, or tobacco-related health factor, from the [place] facility where the Encounter took place. Date/Time Current Smoking Status Comment Facility Oct 26, 2018 08:43 AM LIFETIME NON-TOBACCO USER [facility] Tobacco Use History This section includes a history of the smoking, or tobacco-related health factors, that were collected on or before the date of the Encounter. The data comes from the [place] facility where the Encounter took place. Date/Time Smoking Status/Tobacco Use Comment Valerie cardona May 04, 2017 11:15 AM LIFETIME NON-TOBACCO USER [facility] Aug 24, 2016 03:16 PM QUIT TOBACCO USE > 7 YEARS AGO [facility] Oct 13, 2015 09:41 AM V1-PT THINKING ABOUT QUIT [facility] TOBACCO USE May 06, 2015 04:02 PM QUIT TOBACCO USE IN PAST YEAR [facility] Oct 15, 2014 11:30 AM V1-PT NOT INTERESTED IN QUIT [facility] TOBACCO USE Oct 01, 2013 08:26 AM QUIT TOBACCO USE IN PAST YEAR [facility] Encounter Notes: All associated encounter notes This section contains the clinical notes associated to the Encounter. Date/Time Encounter Note(s) Provider Source Mar 09, 2020 02:27 PM PRIMARY CARE TELEPHONE ENCOUNTER NOTE: BERNARDO MONTIEL [facility] LOCAL TITLE: Telephone Note/Body Piercer STANDARD TITLE: PRIMARY CARE TELEPHONE ENCOUNTER NOTE DATE OF NOTE: MAR 09, 2020@14:27 ENTRY DATE: MAR 09, 2020@14:27:40 AUTHOR: BERNARDO PALM EXP COSIGNER: URGENCY: STATUS: COMPLETED Work Phone: NONE Cell phone: attempted to call patient chen escamilla to discuss further management of his asthma. No answer. Left message. Satya /bianca/ BERNARDO PALM Pulmonary and Critical Care Fellow Signed: 03/09/2020 14:28
--- OUTSIDE RECORDS SUMMARY | 2020-05-16 12:48 | XMS_ITS | Encounter Summary ---
:1985 Author Organization Department of [facility] rs Address [address] [place] [id number] Care Team Providers Name Role Phone CHEN KUMAR Primary Care Provider Unavailable Selected Encounter This section includes the information on record at [facility] for the Encounter. Date/Time Encounter Type Encounter Reason Provider Source Description Mar 02, 2020 CONSULTATION PULMONARY/CHEST ICD-10-CM J45.40 BERNARDO PALM 03:30 PM MEDICAL HCP Moderate persistent asthma, uncomplicated with Provider Comments: Asthma sometimes restricts exercise (SCT [id number]) IHE Encounter Template Text not used by [facility] Assessments - Encounter Diagnoses This section includes the primary and secondary diagnoses documented forthe Encounter. Date/Time Primary/Secondary Diagnosis Name Provider Source Diagnosis Mar 02, 2020 PRIMARY Moderate persistent BERNARDO PALM [place] 03:23 PM asthma, [facility] uncomplicated Mar 02, 2020 SECONDARY Other forms of NÉSTORBERNARDO 03:23 PM dyspnea [facility] Plan of Treatment: Future Appointments (+ 6 months) and Future Tests (+/- 45 days) The Plan of Treatment section includes future care activities for the patient from all [facility] treatment facilities. This section includes future appointments and future orders which are active, pending or scheduled.Future Appointments This section includes appointments that were scheduled to occur 6 months from the date of the Encounter, up to a maximum of 20 appointments. [facility] [place] Date/Time Appointment Type Appointment Facili ty Name Apr 07, 2020 02:30 PM [facility] Apr 08, 2020 10:00 AM AMBULATORY - MEDICINE [facility] Apr 08, 2020 11:30 AM AMBULATORY - MEDICINE [facility] Apr 10, 2020 09:30 AM [facility]INE [facility] May 27, 2020 08:30 AM AMBULATORY - MEDICINE [facility] Active, Pending, and Scheduled Orders This section includes a listing of several types of active, pending, and scheduled orders, including clinic medications orders, diagnostic test orders, procedure orders and consult orders; where the start date of the order is 45 days before the date of the Encounter or 45 days after the date of the Encounter. The data comes from all [facility] treatment facilities. Test Date/Time Test Type Test Details Facility Name Mar 10, 2020 08:45 AM Consult Order [facility] Surgical Procedures: All associated to the encounter This section includes all Surgical Procedures and Surgical Procedure Notes associated to the Encounter.Surgical Procedures This section includes all Surgical Procedures associated to the Encounter.Surgical Procedure Date/Time Procedure Procedure Type Procedure Provider Source Qualifiers Mar 02, 2020 Consultation with CONSULTATION BERNARDO PALM [facility] 03:30 PM [facility] MEDICAL HCP [facility] Jewel Stringer Surgical Notes There are no notes associated with this procedure. Vital Signs: All taken on the encounter date This section contains inpatient and outpatient Vital Signs collected on the date of the Encounter. Date/Time Temperature Pulse Blood Respiratory SP02 Pain Height Weight Chidi dy Source Pressure Rate Mass Index Mar 02 18 /min 96 % 212.9 30 WHITE 2020 03:08 /min lb RIVER PM [facility] Social History: Smoking Status (Most current) and Tobacco Use (All prior to encounter date) This section includes the most current, and the historical, smoking and tobacco-related health factors from the [facility] facility where the Encounter took place.Current Smoking Status This section includes the most current smoking, or tobacco-related health factor, from the [facility] facility where the Encounter took place. Date/Time Current Smoking Status [facility] Oct 26, 2018 08:43 AM LIFETIME NON-TOBACCO USER [facility] Tobacco Use History This section includes a history of the smoking, or tobacco-related health factors, that were collected on or before the date of the Encounter. The data comes from the [facility] facility where the Encounter took place. Date/Time Smoking Status/Tobacco Use Comment Valerie cardona May 04, 2017 11:15 AM LIFETIME NON-TOBACCO USER [facility] Aug 24, 2016 03:16 PM QUIT TOBACCO USE > 7 YEARS AGO [facility] Oct 13, 2015 09:41 AM V1-PT THINKING ABOUT QUIT [facility] TOBACCO USE May 06, 2015 04:02 PM QUIT TOBACCO USE IN PAST YEAR [facility] Oct 15, 2014 11:30 AM V1-PT NOT INTERESTED IN QUIT [facility] TOBACCO USE Oct 01, 2013 08:26 AM QUIT TOBACCO USE IN PAST YEAR [facility] Radiology Reports: +/- 30 days of the encounter Radiology Reports For cases when an order for radiology services may have been completed prior tothe date of the Encounter, the report list includes the Radiology Reports that were completed up to 30 days before date of the Encounter. For cases when an order for radiology services may have been completed after the date of the Encounter, the report list also includes the Radiology Reports that were completed up to 30 days after date of the Encounter. The data comes from all [facility] treatment facilities. Date/Time Radiology Report Provider Source Feb 05, 2020 03:[address] [facility]: RADIOLOGY,OUTSIDE [facility] STEVE ORTIZ [id number] -1985 M SERVICE [facility] Exm Date: FEB 05, 2020@15:30 Req Phys: REMIGIO ROBIN Loc: [facility] ENT UTHEY PHONE (Req'g Loc Img Loc : CT SCAN (OOS) Service : Unknown (Case [id number] COMPLETE) CT MAXI LLOFACIAL W/O CONT (CT Detailed) CPT:[id number] Reason for Study: chronic sinusitis Clinical History: Coordinate same day prior to ENT appt BUN: 21 (11/17/17 09:52) CREATI: 1.34 (11/17/17 09:52) eGFR - NONE FOUND Weight: 188 lb [85.5 kg] (11/22/2018 09:41 ) BODY MASS INDEX - NOV 22, 2018@09:41:52 26.3 Report Status: Verified Da te Reported: FEB 05, 2020 Da te Verified: FEB 05, 2020 [employer]s And Shoes Supervisor E-Sig: Report: CT MAXILLOFACIAL W/O CONT [PRINTSET] HISTORY: Chronic sinusitis COMPARISON: None TECHNIQUE: Images were obtained at the [facility], and then submitted to the National [employer] Pr ogram for interpretation. [address] Serial transverse CT sonya ges of the paranasal sinuses and orbits without contrast. Addit ional coronal and sagittal reconstructed images were obtaine d. Total DLP (mGy*cm): 175 IV Contrast: None FINDINGS: [employer] Shift images appear unremarkabl e. The partially visualized brain appears unr emarkable. The orbits demonstrate a normal noncontrast CT appear ance. The frontal sinuses are small but appear w ell-aerated. The frontal recesses are patent. The ethmoid air cells are well aerated. The sphenoid sinuses are well aerated. The sphenoethmoidal recesses appear patent. The maxillary sinuses are well-aerated. Th e maxillary sinus ostia appear patent bilaterally. The nasal airway appears patent. There is mild rightward bony spurring of the inferior bony nasal septum . The mastoids appear aerated. No evidence o f osseous dehiscence of the skull base is seen. No fracture is see n. Impression: The paranasal sinuses appear well-aerated. No evidence of sinusitis at this time. READING PHYSICIAN: Alvaro Medina M.D. -[phone] 02/05/2020 16:[address] [facility] National T[employer]iology Program [phone] (For Medical Practitioner Us e Only) [address] [place] [address], [place] [address], [address] [place] [address] Attention Patients / Veterans: If you hav e questions or concerns about these test results, please contact y our ordering provider or primary care team. Primary Diagnostic Code: NO ALERT REQUIRED Primary Interpreting Staff: RADIOLOGY,OUTSIDE SERVICE, Staff Physician / Encounter Notes: All associated encounter notes This section contains the clinical notes associated to the Encounter. Date/Time Encounter Note(s) Provider Source Mar 02, 2020 02:54 PM PULMONARY NOTE: BERNARDO PALM [facility] LOCAL TITLE: Pulmonary Note/Medicine STANDARD TITLE: PULMONARY NOTE DATE OF NOTE: MAR 02, 2020@14:54 ENTRY DATE: MAR 02, 2020@14:55 AUTHOR: BERNARDO PALM EXP COSIGNER: SANDRA BARAJAS URGENCY: STATUS: COMPLETED Pulmonary Note/Medicine Has ADDENDA S/ The pt returns to clinic today for F/ U of asthma. The last pulmonary OV was on 01/27/2020. 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 His medical history is also sig nificant for being born premature. His shortness of breath is not getting better despite maximum inhaler treatment + singulair. Since last clinic visit, he has been feeling the same from a breathing perspective. He coughs a little when it's cold o r in the morning. He says his stomach reflux is under cont rol, with BID pepcid. He has had reflux for 8 years. he is not aware of a personal or family history of acid reflux. Active Outpatient Medications (excluding Supplie s): Active Outpatient Medications Status 1) ALBUTEROL 90MCG (CFC-F) 200D ORAL INHL INHA LE 2 PUFFS ACTIVE BY MOUTH FOUR TIMES DAILY NEEDED FOR B REATHING 2) ALPRAZOLAM 0.5MG TAB TAKE ONE TABLET BY STEVIE TH ACTIVE DIRECTED FOR ANXIETY/NERVES TAKE 1 TABLE T THE MORING OF MRI AND MAY REPEAT 30 MINUTES B EFORE MRI..MUST HAVE A ADULT BASIC EDUCATION MANAGER WITH HIM 3) BUDESONIDE 160/FORMOTER 4.5MCG 120D INH INH LYNDA 2 ACTIVE PUFFS BY MOUTH TWICE A DAY FOR BREATHING/ RINSE MOUTH WITH WATER,SWISH AROUND AND SPIT OU T AFTER USING INHALER 4) CETIRIZINE HCL 10MG TAB TAKE ONE TABLET BY MOUTH ACTIVE EVERY DAY FOR ALLERGIES 5) FAMOTIDINE 20MG TAB TAKE ONE TABLET BY MOUT H TWICE A ACTIVE DAY FOR STOMACH ACID FOR A MONTH, IF IMPR LINK THEN DECREASE TO DAILY FOR A MONTH 6) MOMETASONE FUROATE 220MCG ORAL INHL 120 INH LYNDA 2 ACTIVE PUFFS BY MOUTH TWICE A DAY FOR BREATHING/ RINSE MOUTH WITH WATER,SWISH AROUND AND SPIT OU T AFTER USING INHALER 7) MONTELUKAST NA 10MG TAB TAKE ONE TABLET BY MOUTH ACTIVE EVERY MORNING FOR ASTHMA 8) PAROXETINE HCL 30MG TAB TAKE ONE TABLET BY MOUTH ACTIVE (S) EVERY MORNING FOR DEPRESSION AND ANXIETY 9) PROPRANOLOL HCL 20MG TAB TAKE ONE TABLET BY MOUTH ACTIVE TWICE DAILY NEEDED FOR ANXIETY 10) TIOTROPIUM 18MCG INHL CAP 30 INHALE THE CON TENTS OF ACTIVE ONE CAPSULE IN INHALER BY MOUTH EVERY MOR DEMETRIUS FOR BREATHING - INHALATION ONLY, DO NOT SWALL OW CAPSULES Active Non-VA Medications Status 1) Non-VA ALOH/DIPH/MAG/LIDO/SIMET SUSP,ORAL 2 0CC MOUTH ACTIVE TWICE A DAY 2) Non-VA AZITHROMYCIN 250MG TAB PKT 6 250MG M OUTH TWICE ACTIVE A DAY 12 Total Medications Allergies: PENICILLIN O/ PE GA: VS BP: 136/88 (11/22/2018 09:41) Pulse: 86 (11/22/2018 09:41) Temp: 98 F [36.7 C] (11/22/2018 09:41) Resp: 16 (11/22/2018 09:41) HT(in): 71 in [180.3 cm] (11/22/2018 09:41) WT(lbs):188 lb [85.5 kg] (11/22/2018 09:41) PULSE OXIMETRY - NONE FOUND - 1M HEENT: PERRLA. No conjunctival edema or icterus. No neck masses, adenopathy, thyroid abnormalities, or tenderness. Mallampati . Chest: CV: S1 & S2 normal. No murmurs, gallops, rubs, c licks. No JVD. Pulses 1-2+. Abd.: ND/NT s/ masses or HSM. Extrems.: No clubbing, cyanosis, peripheral keaton a, or leg cords. Neuro: Awake, alert, & oriented. No gross focal motor deficits. Labs: AbsI.2 (11/17/17 09:52) BASO %: 0.8 (11/17/17 09:52) BASO#: 0.1 (11/17/17 09:52) EOS %: 1.6 (11/17/17 09:52) EOS#: 0.1 (11/17/17 09:52) HCT: 54.1 (11/17/17 09:52) HGB: 17.7 (11/17/17 09:52) IG%: 2.3 (11/17/17 09:52) LYMPH %: 20.6 (11/17/17 09:52) Lymph#: 1.5 (11/17/17 09:52) MCH: 29.6 (11/17/17 09:52) MCHC: 32.7 (11/17/17 09:52) MCV: 90.6 (11/17/17 09:52) MONO %: 7.9 (11/17/17 09:52) MONO#: 0.6 (11/17/17 09:52) MPV: 10.6 (11/17/17 09:52) N.RBC: 0.0 (11/17/17 09:52) NEUT %: 66.8 (11/17/17 09:52) NEUT#: 5.0 (11/17/17 09:52) NRBC#: 0.00 (11/17/17 09:52) PLT: 237 (11/17/17 09:52) RBC: 5.97 (11/17/17 09:52) RDW: 11.8 (11/17/17 09:52) WBC: 7.5 (11/17/17 09:52) GLU,BUN,CREAT,LYTES - NONE FOUND A/ P/ /bianca/ BERNARDO PALM Pulmonary and Critical Care Fellow Signed: 03/02/2020 15:23 /bianca/ SANDRA BARAJAS Chief of Pulmonary Medicine Cosigned: 03/02/2020 15:35 03/02/2020 ADDENDUM STATUS: COMPLETED LOCAL TITLE: Pulmonary Note/Medicine STANDARD TITLE: PULMONARY NOTE DATE OF NOTE: MAR 02, 2020@14:54 ENTRY DATE: MAR 02, 2020@14:55 AUTHOR: BERNARDO PALM EXP COSIGNER: SANDRA BARAJAS URGENCY: STATUS: UNCOSIGNED NOT YET COSIGNED S/ The pt returns to clinic today for F/ U of asthma. The last pulmonary OV was on 01/27/2020. 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 His medical history is also sig nificant for being born premature. His shortness of breath is not getting better despite maximum inhaler treatment + singulair. Since last clinic visit, he has been feeling the same from a breathing perspective. He coughs a little when it's cold o r in the morning. He says his stomach reflux is under cont rol, with BID pepcid. He has had reflux for 8 years. he is not aware of a personal or family history of acid reflux. He still complains of sinus pain and nose stuffi ness. He recently tolerated a 20 to 30 minute walk wit h brief breaks in the middle. He has been on paxil and propranolol for 1-2 yea rs and hasn't noticed any correlation between these and his breathing. Patient is frustrated that he is not able to do the strenuous activities a regular 34-year-old is able to do. He denies any cardiac history. He reports having had his flu shot for the current season. Active Outpatient Medications (excluding Supplie s): Active Outpatient Medications Status 1) ALBUTEROL 90MCG (CFC-F) 200D ORAL INHL INHA LE 2 PUFFS ACTIVE BY MOUTH FOUR TIMES DAILY NEEDED FOR B REATHING 2) ALPRAZOLAM 0.5MG TAB TAKE ONE TABLET BY ACTIVE DIRECTED FOR ANXIETY/NERVES TAKE 1 TABLE T THE MORING OF MRI AND MAY REPEAT 30 MINUTES B EFORE MRI..MUST HAVE A ADULT BASIC EDUCATION MANAGER WITH HIM 3) BUDESONIDE 160/FORMOTER 4.5MCG 120D INH INH LYNDA 2 ACTIVE PUFFS BY MOUTH TWICE A DAY FOR BREATHING/ RINSE MOUTH WITH WATER,SWISH AROUND AND SPIT OU T AFTER USING INHALER 4) CETIRIZINE HCL 10MG TAB TAKE ONE TABLET BY MOUTH ACTIVE EVERY DAY FOR ALLERGIES 5) FAMOTIDINE 20MG TAB TAKE ONE TABLET BY MOUT H TWICE A ACTIVE DAY FOR STOMACH ACID FOR A MONTH, IF IMPR LINK THEN DECREASE TO DAILY FOR A MONTH 6) MOMETASONE FUROATE 220MCG ORAL INHL 120 INH LYNDA 2 ACTIVE PUFFS BY MOUTH TWICE A DAY FOR BREATHING/ RINSE MOUTH WITH WATER,SWISH AROUND AND SPIT OU T AFTER USING INHALER 7) MONTELUKAST NA 10MG TAB TAKE ONE TABLET BY MOUTH ACTIVE EVERY MORNING FOR ASTHMA 8) PAROXETINE HCL 30MG TAB TAKE ONE TABLET BY MOUTH ACTIVE (S) EVERY MORNING FOR DEPRESSION AND ANXIETY 9) PROPRANOLOL HCL 20MG TAB TAKE ONE TABLET BY MOUTH ACTIVE TWICE DAILY NEEDED FOR ANXIETY 10) TIOTROPIUM 18MCG INHL CAP 30 INHALE THE CON TENTS OF ACTIVE ONE CAPSULE IN INHALER BY MOUTH EVERY MOR DEMETRIUS FOR BREATHING - INHALATION ONLY, DO NOT SWALL OW CAPSULES Active Non-VA Medications Status 1) Non-VA ALOH/DIPH/MAG/LIDO/SIMET SUSP,ORAL 2 0CC MOUTH ACTIVE TWICE A DAY 2) Non-VA AZITHROMYCIN 250MG TAB PKT 6 250MG M OUTH TWICE ACTIVE A DAY 12 Total Medications Allergies: PENICILLIN O/ PE HR 89, BP 136/71, SPO2 98% on RA HEENT: PERRLA. No conjunctival edema or icterus. No neck masses, adenopathy, thyroid abnormalities, or tenderness. Chest: excellent air movement bialterally, no wh eezing, no crackles CV: S1 & S2 normal. No murmurs, gallops, rubs, c licks. Pulses 1-2+. Abd.: ND/NT s/ masses or HSM. Extrems.: No clubbing, cyanosis, peripheral keaton a, or leg cords. Neuro: Awake, alert, & oriented. No gross focal motor deficits. Labs: AbsI.2 (11/17/17 09:52) BASO %: 0.8 (11/17/17 09:52) BASO#: 0.1 (11/17/17 09:52) EOS %: 1.6 (11/17/17 09:52) EOS#: 0.1 (11/17/17 09:52) HCT: 54.1 (11/17/17 09:52) HGB: 17.7 (11/17/17 09:52) IG%: 2.3 (11/17/17 09:52) LYMPH %: 20.6 (11/17/17 09:52) Lymph#: 1.5 (11/17/17 09:52) MCH: 29.6 (11/17/17 09:52) MCHC: 32.7 (11/17/17 09:52) MCV: 90.6 (11/17/17 09:52) MONO %: 7.9 (11/17/17 09:52) MONO#: 0.6 (11/17/17 09:52) MPV: 10.6 (11/17/17 09:52) N.RBC: 0.0 (11/17/17 09:52) NEUT %: 66.8 (11/17/17 09:52) NEUT#: 5.0 (11/17/17 09:52) NRBC#: 0.00 (11/17/17 09:52) PLT: 237 (11/17/17 09:52) RBC: 5.97 (11/17/17 09:52) RDW: 11.8 (11/17/17 09:52) WBC: 7.5 (11/17/17 09:52) GLU,BUN,CREAT,LYTES - NONE FOUND CT sinus 01/2020: all paranasal sinuses are jorge r and well aerated. PFT 03/02/2020 FVC 5.1L, 91% FEV1 3.13L, 69% ratio 0.61 FEF 25-75: 1.7L/secc, 38% DLCO 89% BD response not done FENO 6 PPB A/ 34 year old man with adult-onset asthma, sleep a pnea on CPAP, anxiety, depression, presenting for asthma follow up. Sta ble on quadruple inhalers. physical exam benign, but to this patient, his asthma has been limiting his life significantly. He does not have eosinophilia or hyperIgE. P/ - continue current inhaler regimen plus singulai r - unlikely to be a candidate for xolair or dupix ent - referred to pulm rehab - vaccines UTD - follow up in 6 months - wrote for 5 days of predni sone he can use in case of exacerbation (he knows to call if he needs to start it) - continue pepcid for his reflux - if exercise capacity continues to worsen, will have low threshold to order ECHO for concern for pHTN. /bianca/ BERNARDO PALM Pulmonary and Critical Care Fellow Signed: 03/02/2020 15:23 /bianca/ BERNARDO PALM Pulmonary and Critical Care Fellow Signed: 03/02/2020 16:05 /bianca/ SNADRA BARAJAS Chief of Pulmonary Medicine Cosigned: 03/03/2020 09:09
--- OUTSIDE RECORDS SUMMARY | 2020-05-16 12:48 | XMS_ITS | Encounter Summary ---
:1985 Author Organization Department of [facility] rs Address [address] [place] [address] Care Team Providers Name Role Phone CHEN KUMAR Primary Care Provider Unavailable Selected Encounter This section includes the information on record at PA for the Encounter. Date/Time Encounter Type Encounter Reason Provider Source Description Mar 02, 2020 EXHALED NITRIC PULMONARY ICD-10-CM J45.40 DANIELLA MANUEL 02:30 PM OXIDE NOHEMY FUNCTION Moderate UO persistent asthma, uncomplicated with Provider Comments: Asthma sometimes restricts exercise (SCT [id number]) IHE Encounter Template Text not used by PA Assessments - Encounter Diagnoses This section includes the primary and secondary diagnoses documented forthe Encounter. Date/Time Primary/Secondary Diagnosis Name Provider Source Diagnosis Mar 03, 2020 PRIMARY Moderate persistent RENY GOINS IVER 09:59 AM asthma, [facility] uncomplicated Mar 03, 2020 SECONDARY Other forms of RENY GOINS 09:59 AM dyspnea [facility] Plan of Treatment: Future Appointments (+ 6 months) and Future Tests (+/- 45 days) The Plan of Treatment section includes future care activities for the patient from all PA treatment facilities. This section includes future appointments and future orders which are active, pending or scheduled.Future Appointments This section includes appointments that were scheduled to occur 6 months from the date of the Encounter, up to a maximum of 20 appointments. [facility] Appointment Date/Time Appointment Type Appointment Facili ty Name Apr 07, 2020 02:30 PM [facility]UL[facility] Apr 08, 2020 10:00 AM AMBULATORY - MEDICINE [facility] Apr 08, 2020 11:30 AM [facility] Apr 10, 2020 09:30 AM AMBULATORY - MEDICINE [facility] May 27, 2020 08:30 AM AMBULATORY - MEDICINE [facility] Active, Pending, and Scheduled Orders This section includes a listing of several types of active, pending, and scheduled orders, including clinic medications orders, diagnostic test orders, procedure orders and consult orders; where the start date of the order is 45 days before the date of the Encounter or 45 days after the date of the Encounter. The data comes from all PA treatment facilities. Test Date/Time Test Type Test Details Facility Name Mar 10, 2020 08:45 AM Consult Order COMMUNITY CARE-PULMONARY W SANDRA ROSEN[facility] Cons [facility] [place] Surgical Procedures: All associated to the encounter This section includes all Surgical Procedures and Surgical Procedure Notes associated to the Encounter.Surgical Procedures This section includes all Surgical Procedures associated to the Encounter.Surgical Procedure Date/Time Procedure Procedure Type Procedure Provider Source Qualifiers Mar 02, 2020 NITRIC OXIDE EXHALED NITRIC RENY GOINS [place] 02:30 PM EXP GAS DETERM OXIDE NOHEMY [facility] Surgical Notes There are no notes associated with this procedure. Surgical Procedure Date/Time Procedure Procedure Type Procedure Provider Source Qualifiers Mar 02, 2020 FLOW VOLUME RESPIRATORY FLOW RENY GOINS ITE [place] 02:30 PM LOOP VOLUME LOOP [facility] Surgical Notes There are no notes associated with this procedure. Surgical Procedure Date/Time Procedure Procedure Type Procedure Provider Source Qualifiers Mar 02, 2020 DIFFUSING CO/MEMBANE RENY GOINS KYLEE ER 02:30 PM CAPACITY DIFFUSE [facility] CAPACITY Surgical Notes There are no notes associated [...] WHITE 2020 03:08 /min lb [place] [facility] Social History: Smoking Status (Most current) and Tobacco Use (All prior to encounter date) This section includes the most current, and the historical, smoking and tobacco-related health factors from the PA facility where the Encounter took place.Current Smoking Status This section includes the most current smoking, or tobacco-related health factor, from the PA facility where the Encounter took place. Date/Time Current Smoking Status Comment Facility Oct 26, 2018 08:43 AM LIFETIME NON-TOBACCO USER [facility] Tobacco Use History This section includes a history of the smoking, or tobacco-related health factors, that were collected on or before the date of the Encounter. The data comes from the PA facility where the Encounter took place. Date/Time Smoking Status/Tobacco Use Comment [facility] May 04, 2017 11:15 AM LIFETIME NON-TOBACCO USER [facility] Aug 24, 2016 03:16 PM QUIT TOBACCO USE > 7 YEARS AGO [facility] Oct 13, 2015 09:41 AM V1-PT THINKING ABOUT QUIT [facility] TOBACCO USE May 06, 2015 04:02 PM QUIT TOBACCO USE IN PAST YEAR [facility] Oct 15, 2014 11:30 AM V1-PT NOT INTERESTED IN QUIT [facility] TOBACCO USE Oct 01, 2013 08:26 AM QUIT TOBACCO USE IN PAST YEAR [facility] Radiology Reports: +/- 30 days of the [...] the Encounter. The data comes from all PA treatment facilities. Date/Time Radiology Report Provider Source Feb 05, 2020 03:[address] MAXILLOFACIAL: RADIOLOGY,OUTSIDE [facility] STEVE ORTIZ [id number] -1985 M SERVICE [facility] Ex Date: FEB 05, 2020@15:30 Req Phys: REMIGIO ROBIN Loc: [facility] PHONE (Req'g Loc Img Loc : CT SCAN (OOS) Service : Unknown (Case [id number] COMPLETE) CT MAXI LLOFACIAL W/O CONT (CT Detailed) CPT:10808 Reason for Study: chronic sinusitis Clinical History: Coordinate same day prior to ENT appt BUN: 21 (11/17/17 09:52) CREATI: 1.34 (11/17/17 09:52) eGFR - NONE FOUND Weight: 188 lb [85.5 kg] (11/22/2018 09:41 ) BODY MASS INDEX - NOV 22, 2018@09:41:52 26.3 Report Status: Verified Da te Reported: FEB 05, 2020 Da te Verified: FEB 05, 2020 Junior Network Administrator E-Sig: Report: CT MAXILLOFACIAL W/O CONT [PRINTSET] HISTORY: Chronic sinusitis COMPARISON: None TECHNIQUE: Images were obtained at the [facility], and then submitted to the National Teleradiology Pr ogram for interpretation. [address] Serial transverse CT sonya ges of the paranasal sinuses and orbits without contrast. Addit ional coronal and sagittal reconstructed images were obtaine d. Total DLP (mGy*cm): 175 IV Contrast: None FINDINGS: Self Sealing Fuel Tank Repairer images appear unremarkabl e. The partially visualized [...] time. READING PHYSICIAN: Alvaro Medina M.D. -18 [id number] 02/05/2020 16:27 EST [facility] National Teleradiology Program [phone] (For Medical Practitioner Us e Only) [address] [facility], [facility] [address], [address] [place] [address] Attention Patients / Veterans: If you hav e questions or concerns about these test results, please contact y our ordering provider or primary care team. Primary Diagnostic Code: NO ALERT REQUIRED Primary Interpreting Staff: RADIOLOGY,OUTSIDE SERVICE, Staff Physician / Encounter Notes: All associated encounter notes This section contains the clinical notes associated to the Encounter. Date/Time Encounter Note(s) Provider Source Mar 03, 2020 09:38 AM PULMONARY NOTE: ZACH ARSHAD [facility] [place] LOCAL TITLE: Pulmonary Note/Medicine [facility] STANDARD TITLE: PULMONARY NOTE DATE OF NOTE: MAR 03, 2020@09:38 ENTRY DATE: MAR 03, 2020@09:39:04 AUTHOR: ZACH ARSHAD EXP COSIGNER: NICKIE MANUEL URGENCY: STATUS: COMPLETED Spirometry FVC:Normal 91% predicted FEV1:Reduced 69% predicted FEV1/FVC ratio:Reduced VSS57-52%:Reduced Diffusing capacity DLCO:Normal 89% predicted DLCO Adj:Normal See [facility] for flow/volume graph See Reports Tab > PFT, EKG Results (local merary a) FeNO 6 ppb. PFT Interpretation: Spirometry reveals a moderat e obstructive ventilatory defect, consistent with the given diagnosis of asthma. FeNO of 6 ppb is suggestive of low airway eosino philic inflammation and by interpolation poor response to inhaled or system ic steroid therapy. Comments: Effort, cooperation and reproducibility were goo d. *The [place] [employer] defines a clinica lly significant response to bronchodilator as an improvement in FEV1 OR FVC of at least 12% AND 200ml /es/ ZACH ARSHAD Resident Physician Signed: 03/03/2020 09:42 /es/ NICKIE MANUEL Staff MD Cosigned: 03/03/2020 09:59 Mar 02, 2020 02:50 PM RESPIRATORY THERAPY NOTE: [facility] LOCAL TITLE: Respiratory Therapy Progress Note [facility] STANDARD TITLE: RESPIRATORY THERAPY NOTE DATE OF NOTE: MAR 02, 2020@14:50 ENTRY DATE: MAR 02, 2020@14:50:04 AUTHOR: RENY GOINS EXP COSIGNER: URGENCY: STATUS: COMPLETED PFT testing with Patient was done on Feb at [facility]. PFT printed report was placed in PFT folder marco melina at desk 80. Pending Pulmonary interpretation Note. FENO (fraction of exhaled nitric oxide) testing was done on Feb. Niox Vilma FENO Results: 6 ppb /es/ RENY GOINS Registered Respiratory Therapist Signed: 03/02/2020 15:22
--- OUTSIDE RECORDS SUMMARY | 2020-05-16 12:48 | XMS_ITS | Encounter Summary ---
:1985 Author [address] [facility] rs Address [address] [place] [address] Care Team Providers Name Role Phone CHEN KUMAR Primary Care Provider Unavailable Selected Encounter This section includes the information on record at CT for the Encounter. Date/Time Encounter Type Encounter Reason Provider Source Description Jan 31, 2020 Outpatient TELEPHONE ICD-10-CM J45.40 GILMAR BLOUNT 09:00 AM Encounter PRIMARY CARE Moderate persistent asthma, uncomplicated with Provider Comments: Asthma sometimes restricts exercise (SCT [id number]) IHE Encounter Template Text not used by CT Assessments - Encounter Diagnoses This section includes the primary and secondary diagnoses documented forthe Encounter. Date/Time Primary/Secondary Diagnosis Name Provider Source Diagnosis Jan 31, 2020 PRIMARY Moderate persistent GILMAR BLOUNT [facility] 09:00 AM asthma, CLINIC uncomplicated Jan 31, 2020 SECONDARY Pain in left [facility] Landen [facility] 09:00 AM CLINIC Plan of Treatment: Future Appointments (+ 6 months) and Future Tests (+/- 45 days) The Plan of Treatment section includes future care activities for the patient from all CT treatment facilities. This section includes future appointments and future orders which are active, pending or scheduled.Future Appointments This section includes appointments that were scheduled to occur 6 months from the date of the Encounter, up to a maximum of 20 appointments. The [facility] Appointment Date/Time Appointment Type Appointment Facili ty Name Feb 05, 2020 03:30 PM AMBULATORY - NONE [place] [facility] [facility] Feb 18, 2020 01:30 PM AMBUL[facility]ORY - SURGERY [place] [facility] Feb 24, 2020 06:00 PM AMBULATORY - NONE [place] [facility] Mar 02, 2020 02:30 PM [facility] [place] [facility] Mar 02, 2020 03:30 PM [facility] [place] [facility] Apr 07, 2020 02:30 PM AM[facility]UL[facility] - SURGERY [place] [facility] Apr 08, 2020 10:00 AM AMBUL[facility]ORY - [facility]ICINE [place] [facility] Apr 08, 2020 11:30 AM [facility] [place] [facility] Apr 10, 2020 09:30 AM AMBULATORY - MEDICINE [facility] May 27, 2020 08:30 AM [facility] - [facility]IC[facility] [place] [facility] Active, Pending, and Scheduled Orders This section includes a listing of several types of active, pending, and scheduled orders, including clinic medications orders, diagnostic test orders, procedure orders and consult orders; where the start date of the order is 45 days before the date of the Encounter or 45 days after the date of the Encounter. The data comes from all CT treatment facilities. Test Date/Time Test Type Test Details Facility Name Mar 10, 2020 08:45 AM Consult Order COMMUNITY CARE-PULMONARY [facility] Cons Machine I [facility] Social History: Smoking Status (Most current) and Tobacco Use (All prior to encounter date) This section includes the most current, and the historical, smoking and tobacco-related health factors from the CT facility where the Encounter took place.Current Smoking Status This section includes the most current smoking, or tobacco-related health factor, from the CT facility where the Encounter took place. Date/Time Current Smoking Status Comment Facility Jun 21, 2019 01:[address]-TOBACCO QUIT 1 TO < 5 YRS [facility] Tobacco Use History This section includes a history of the smoking, or tobacco-related health factors, that were collected on or before the date of the Encounter. The data comes from the CT facility where the Encounter took place. Date/Time Smoking Status/Tobacco Use Comment [facility] Jun 21, 2019 01:[address]-TOBACCO QUIT 1 TO < 5 YRS [facility] Radiology Reports: +/- 30 days of [...] the Encounter. The data comes from all CT treatment facilities. Date/Time Radiology Report Provider Source Feb 05, 2020 03:[address] MAXILLOFACIAL: RADIOLOGY,OUTSIDE [facility] STEVE ORTIZ [id number] -1985 M SERVICE [facility] Exm Date: FEB 05, 2020@15:30 Req Phys: REMIGIO ROBIN Loc: [facility] [place] PHONE (Req'g Loc Img Loc : CT SCAN (OOS) Service : Unknown (Case [id number] COMPLETE) CT MAXI LLOFACIAL W/O CONT (CT Detailed) CPT:69966 Reason for Study: chronic sinusitis Clinical History: Coordinate same day prior to ENT appt BUN: 21 (11/17/17 09:52) CREATI: 1.34 (11/17/17 09:52) eGFR - NONE FOUND Weight: 188 lb [85.5 kg] (11/22/2018 09:41 ) BODY MASS INDEX - NOV 22, 2018@09:41:52 26.3 Report Status: Verified Da te Reported: FEB 05, 2020 Da te Verified: FEB 05, 2020 Web Marketing Manager E-Sig: Report: CT MAXILLOFACIAL W/O CONT [PRINTSET] HISTORY: Chronic sinusitis COMPARISON: None TECHNIQUE: Images were obtained at the [facility], and then submitted to the National Teleradiology Pr ogram for interpretation. [address] Serial transverse CT sonya ges of the paranasal sinuses and orbits without contrast. Addit ional coronal and sagittal reconstructed images were obtaine d. Total DLP (mGy*cm): 175 IV Contrast: None FINDINGS: Senior Data Architect images appear unremarkabl e. The partially visualized [...] time. READING PHYSICIAN: Alvaro Medina M.D. -18 [phone] 02/05/2020 16:27 EST [facility] National Teleradiology Program [phone] (For Medical Practitioner Us e Only) [address] [facility], [facility] [address], [address] [place] [address] Attention Patients / Veterans: If you hav e questions or concerns about these test results, please contact y our ordering provider or primary care team. Primary Diagnostic Code: NO ALERT REQUIRED Primary Interpreting Staff: RADIOLOGY,OUTSIDE SERVICE, Staff Physician / Encounter Notes: All associated encounter notes This section contains the clinical notes associated to the Encounter. Date/Time Encounter Note(s) Provider Source Jan 31, 2020 11:49 AM PRIMARY CARE TELEPHONE ENCOUNTER NOTE: GILMAR ELI [facility] LOCAL TITLE: Telephone Note-Primary Care STANDARD TITLE: PRIMARY CARE TELEPHONE ENCOUNTER NOTE DATE OF NOTE: JAN 31, 2020@11:49 ENTRY DATE: JAN 31, 2020@11:49:08 AUTHOR: GILMAR BLOUNT EXP COSIGNER: URGENCY: STATUS: COMPLETED Telephone Note-Primary Care Has ADDENDA * Work Phone: NONE Cell phone: TIME SPENT RN OPERATING ROOM 18 minutes [place] reached by phone as part of the phone clinic. denies any fever, cough or any exposure to known COVID19. [place] denies any recent travel. urged to say home and isolated for [facility] Active Outpatient Medications (excluding Supplie s): Active Outpatient Medications Status 1) ALBUTEROL 90MCG (CFC-F) 200D ORAL INHL INHA LE 2 PUFFS ACTIVE BY MOUTH FOUR TIMES DAILY NEEDED FOR B REATHING 2) BUDESONIDE 160/FORMOTER 4.5MCG 120D INH INH LYNDA 2 ACTIVE PUFFS BY MOUTH TWICE A DAY FOR BREATHING/ RINSE MOUTH WITH WATER,SWISH AROUND AND SPIT OU T AFTER USING INHALER 3) CETIRIZINE HCL 10MG TAB TAKE ONE TABLET BY MOUTH ACTIVE EVERY DAY FOR ALLERGIES 4) FAMOTIDINE 20MG TAB TAKE ONE TABLET BY MOUT H TWICE A ACTIVE DAY FOR STOMACH ACID FOR A MONTH, IF IMPR LINK THEN DECREASE TO DAILY FOR A MONTH 5) MOMETASONE FUROATE 220MCG ORAL INHL 120 INH LYNDA 2 ACTIVE PUFFS BY MOUTH TWICE A DAY FOR BREATHING/ RINSE MOUTH WITH WATER,SWISH AROUND AND SPIT OU T AFTER USING INHALER 6) MONTELUKAST NA 10MG TAB TAKE ONE TABLET BY MOUTH ACTIVE EVERY MORNING FOR ASTHMA 7) PAROXETINE HCL 30MG TAB TAKE ONE TABLET BY MOUTH ACTIVE EVERY MORNING FOR DEPRESSION AND ANXIETY 8) PROPRANOLOL HCL 20MG TAB TAKE ONE TABLET BY MOUTH ACTIVE TWICE DAILY NEEDED FOR ANXIETY 9) TIOTROPIUM 18MCG INHL CAP 30 INHALE THE CON TENTS OF ACTIVE ONE CAPSULE IN INHALER BY MOUTH EVERY MOR DEMETRIUS FOR BREATHING - INHALATION ONLY, DO NOT SWALL OW CAPSULES Active Non-VA Medications Status 1) Non-VA ALOH/DIPH/MAG/LIDO/SIMET SUSP,ORAL 2 0CC MOUTH ACTIVE TWICE A DAY 2) Non-VA AZITHROMYCIN 250MG TAB PKT 6 250MG M OUTH TWICE ACTIVE A DAY 11 Total Medications Reports that he has asthma just had a vi sit with pulmonology. Current inhalers that are he is taking is accurate on the medication list. He has increasing pain in his right knee. He is service- connected for injuries on his left knee. He has not been able to walk well and has been overcompensating wi th his right knee. X-ray showed degenerative changes in physical therapy has not helped at al . We discussed that his problems with his right knee may not have existed if not for the service-connected injuries to his left knee. The brace been of little value Assessment/Plan Asthma. Continue current plan Right knee pain. Will obtain MRI of right knee Phone clinic after MRI is completed /dipak BLOUNT APRN Signed: 02/03/2020 02:38 03/10/2020 ADDENDUM STATUS: COMPLETED receipt of DST [employer] Decision Support In formation DST ID: [id number] Do not change text above this l ine Justification for Non VA Care: BMI-per episode of care Type of Service: Evaluation and Treatment (If diagnostic or treatment option is selected a procedure entry is required) Chief Complaint: needs pulmoary rehab /dipak BLOUNT APRN Signed: 03/10/2020 08:46
--- OUTSIDE RECORDS SUMMARY | 2020-05-16 12:48 | XMS_ITS | Encounter Summary ---
:1985 Author Organization [facility] rs Address [address] [place] [address] Care Team Providers Name Role Phone CHEN KUMAR Primary Care Provider Unavailable Selected Encounter This section includes the information on record at [place] for the Encounter. Date/Time Encounter Type Encounter Reason Provider Source Description Mar 05, 2020 Outpatient TELEPHONE/MEDICIN ICD-10-CM J45.40 BERNARDO PALM 03:07 PM Encounter E Moderate persistent asthma, uncomplicated with Provider Comments: Asthma sometimes restricts exercise (SCT [id number]) IHE Encounter Template Text not used by [facility] Assessments - Encounter Diagnoses This section includes the primary and secondary diagnoses documented forthe Encounter. Date/Time Primary/Secondary Diagnosis Name Provider Source Diagnosis Mar 05, 2020 PRIMARY Moderate persistent BERNARDO PALM [place] 03:07 PM asthma, [facility] uncomplicated Plan of Treatment: Future Appointments (+ 6 months) and Future Tests (+/- 45 days) The Plan of Treatment section includes future care activities for the patient from all [place] treatment facilities. This section includes future appointments and future orders which are active, pending or scheduled.Future Appointments This section includes appointments that were scheduled to occur 6 months from the date of the Encounter, up to a maximum of 20 appointments. The data comes from all [place] [facility] Appointment Date/Time Appointment Type Appointment Facili ty Name Apr 07, 2020 02:30 PM AMBULATORY - SURGERY [facility] Apr 08, 2020 10:00 AM AM[facility]ULATORY - MEDICINE [facility] Apr 08, 2020 11:30 AM AMBULATORY - MEDICINE [facility] Apr 10, 2020 09:30 AM AMBULATORY - MEDICINE [facility] May 27, 2020 08:30 AM [...] the Encounter. The data comes from all [place] treatment facilities. Test Date/Time Test Type Test Details Facility Name Mar 10, 2020 08:45 AM Consult Order COMMUNITY [facility]ARE-PULMONARY [facility] Cons Cost Manager's Choice Social History: Smoking Status (Most current) and Tobacco Use (All prior to encounter date) This section includes the most current, and the historical, smoking and tobacco-related health factors from the [place] facility where the Encounter took place.Current Smoking Status This section includes the most current smoking, or tobacco-related health factor, from the [place] facility where the Encounter took place. Date/Time Current Smoking Status Comment Facility Oct 26, 2018 08:43 AM LIFETIME NON-TOBACCO USER [facility] Tobacco Use History This section includes a history of the smoking, or tobacco-related health factors, that were collected on or before the date of the Encounter. The data comes from the [place] facility where the Encounter took place. Date/Time [...] USE IN PAST YEAR [facility] Radiology Reports: +/- 30 days of [...] the Encounter. The data comes from all [place] treatment facilities. Date/Time Radiology Report Provider Source Feb 05, 2020 03:[address] MAXILLOFACIAL: RADIOLOGY,OUTSIDE [facility] STEVE ORTIZ [id number] -1985 M [facility] Exm Date: FEB 05, 2020@15:30 Req Phys: REMIGIO ROBIN Loc: [facility] ENT [facility] PHONE (Req'g Loc Img Loc : CT SCAN (OOS) Service : Unknown (Case [id number] COMPLETE) CT MAXI LLOFACIAL W/O CONT (CT Detailed) CPT:90472 Reason for Study: chronic sinusitis Clinical History: Coordinate same day prior to ENT appt BUN: 21 (11/17/17 09:52) CREATI: 1.34 (11/17/17 09:52) eGFR - NONE FOUND Weight: 188 lb [85.5 kg] (11/22/2018 09:41 ) BODY MASS INDEX - NOV 22, 2018@09:41:52 26.3 Report Status: Verified Da te Reported: FEB 05, 2020 Da te Verified: FEB 05, 2020 Public Health Clinical Nurse Specialist E-Sig: Report: CT MAXILLOFACIAL W/O CONT [PRINTSET] HISTORY: Chronic sinusitis COMPARISON: None TECHNIQUE: Images were obtained at the [facility], and then submitted to the National Teler[employer] Pr jennifer for interpretation. [address] Serial transverse CT sonya ges of the paranasal sinuses and orbits without contrast. Addit ional coronal and sagittal reconstructed images were obtaine d. Total DLP (mGy*cm): 175 IV Contrast: None FINDINGS: Design Quality Engineer images appear unremarkabl e. The partially visualized [...] time. READING PHYSICIAN: Alvaro Medina M.D. -[phone] 02/05/2020 16:27 EST [facility] National Teleradiology Program [phone] (For Medical Practitioner Us e Only) [address], [place] [address], [address] [place] [address] Attention Patients / Veterans: If you hav e questions or concerns about these test results, please contact y our ordering provider or primary care team. Primary Diagnostic Code: NO ALERT REQUIRED Primary Interpreting Staff: RADIOLOGY,OUTSIDE SERVICE, Staff Physician / Encounter Notes: All associated encounter notes This section contains the clinical notes associated to the Encounter. Date/Time Encounter Note(s) Provider Source Mar 05, 2020 03:07 PM PRIMARY CARE TELEPHONE ENCOUNTER NOTE: BERNARDO MONTIEL [facility] LOCAL TITLE: Telephone Note/Design Quality Engineer STANDARD TITLE: PRIMARY CARE TELEPHONE ENCOUNTER NOTE DATE OF NOTE: MAR 05, 2020@15:07 ENTRY DATE: MAR 05, 2020@15:07:34 AUTHOR: BERNARDO PALM EXP COSIGNER: URGENCY: STATUS: COMPLETED Work Phone: NONE Cell phone: Called patient in attempt to discuss further management of his asthma. including trial of low dose po steroids, lung biopsy and r eferral to an asthma center. called twice patient did not continuous pickling line pickler. Left shelia ge and will call later. C /bianca/ BERNARDO PALM Pulmonary and Critical Care Fellow Signed: 03/05/2020 15:10
--- OUTSIDE RECORDS SUMMARY | 2020-05-16 12:49 | XMS_ITS | Encounter Summary ---
:1985 Author Organization [facility] rs Address [address] [place] [address] Care Team Providers Name Role Phone CHEN KUMAR Primary Care Provider Unavailable Selected Encounter This section includes the information on record at [place] for the Encounter. Date/Time Encounter Type Encounter Description Reason Provider Source Sep 24, 2019 10:36 Outpatient Encounter PRIMARY CARE/MEDICINE CANDIE URENA AM Encounter Template Text not used by [place] Plan of Treatment: Future Appointments (+ 6 [...] appointments. The [facility] [place] [facility] Appointment Date/Time Appointment Type Appointment Facili ty Name Oct 30, 2019 08:30 AM AMBULATORY - MEDICINE [place] [place] Nov 28, 2019 10:00 AM AMBULATORY - N[place] [facility] [facility] Dec 17, 2019 03:00 PM AMBULATORY - MEDICINE [facility] Jan 27, 2020 03:00 PM AMBULATORY - MEDICINE [facility] Jan 31, 2020 09:00 AM AMBULATORY - MEDICINE [facility] Feb 05, 2020 03:30 PM AMBULATORY - [place] [facility] Feb 18, 2020 01:30 PM AMBUL[place]ORY [place] [facility] Feb 24, 2020 06:00 PM [facility]ONE [place] [facility] Mar 02, 2020 02:30 PM AM[facility]ULATORY - MEDICINE [facility] Mar 02, 2020 03:30 PM AMBULATORY - MEDICINE [facility] Social History: Smoking Status (Most current) and Tobacco Use (All prior to encounter date) This section includes the most current, and the historical, smoking and tobacco-related health factors from the [place] facility where the Encounter took place.Current Smoking Status This section includes the most current smoking, or tobacco-related health factor, from the [place] facility where the Encounter took place. Date/Time Current Smoking Status Comment Facility Oct 26, 2018 08:43 AM LIFETIME NON-TOBACCO USER [facility] Tobacco Use History This section includes a history of the smoking, or tobacco-related health factors, that were collected on or before the date of the Encounter. The data comes from the [place] facility where the Encounter took place. Date/Time Smoking Status/Tobacco Use Comment [facility] May 04, 2017 11:15 AM LIFETIME NON-TOBACCO USER [facility] Aug 24, 2016 03:16 PM QUIT TOBACCO USE > 7 YEARS AGO [facility] Oct 13, 2015 09:41 AM V1-PT THINKING ABOUT QUIT [facility] TOBACCO USE May 06, 2015 04:02 PM QUIT TOBACCO USE IN PAST YEAR [facility] Oct 15, 2014 11:30 AM V1-PT NOT INTERESTED IN QUIT [facility] TOBACCO USE Oct 01, 2013 08:26 AM QUIT TOBACCO USE IN PAST YEAR [facility] Encounter Notes: All associated encounter notes This section contains the clinical notes associated to the Encounter. Date/Time Encounter Note(s) Provider Source Sep 24, 2019 10:36 AM PRIMARY CARE SECURE MESSAGING: CANDIE URENA [facility] LOCAL TITLE: PRIMARY CARE SECURE MESSAGING STANDARD TITLE: PRIMARY CARE SECURE MESSAGING DATE OF NOTE: SEP 24, 2019@10:36:56 ENTRY DATE: SEP 24, 2019@11:36:57 AUTHOR: CANDIE URENA EXP COSIGNER: URGENCY: STATUS: COMPLETED ------Original Message Sent: 09/24/2019 10:51 AM From: MIKIE LOCKHART To: [place] Subject: Prescription refill Mikie Lockhart here, last [id number]. I am a lmost out of my breathing medications, I have about a week until I run out. I have no more refills left. I need the following medications refilled and se nt to me. Albuterol 90mcg, Budesonide (Symbicort) 160mcg, Tiotropium bromid e (Spiriva) 18mcg, Mometasone furoate (Asmanex) 220mcg. My phone number is [phone] if there are any questions. /es/ CANDIE URENA licensed practical nurse Signed: 09/24/2019 11:36 Receipt Acknowledged By: 09/25/2019 20:19 /es/ GILMAR BLOUNT APRN
--- OUTSIDE RECORDS SUMMARY | 2020-05-16 12:49 | XMS_ITS | Encounter Summary ---
:1985 Author Organization [facility] rs Address [address] [place] [address] Care Team Providers Name Role Phone CHEN KUMAR Primary Care Provider Unavailable Selected Encounter This section includes the information on record at [place] for the Encounter. Date/Time Encounter Type Encounter Reason Provider Source Description Dec 17, 2019 Outpatient TELEPHONE ICD-10-CM J45.40 JOSE ALEJANDROGILMAR Schuster 03:00 PM Encounter PRIMARY CARE Moderate persistent asthma, uncomplicated with Provider Comments: Asthma sometimes restricts exercise (SCT [id number]) IHE Encounter Template Text not used by [place] Assessments - Encounter Diagnoses This section includes the primary and secondary diagnoses documented forthe Encounter. Date/Time Primary/Secondary Diagnosis Name Provider Source Diagnosis Dec 17, 2019 PRIMARY Moderate persistent GILMAR BLOUNT [facility] 03:00 PM asthma, CLINIC uncomplicated Dec 17, 2019 SECONDARY Pain in left knee HIPTYERSEGILMAR Landen [facility] 03:00 PM CLINIC Plan of Treatment: Future Appointments (+ 6 months) and Future Tests (+/- 45 days) The Plan of Treatment section includes future care activities for the patient from all [place] treatment facilities. This section includes future appointments and future orders which are active, pending or scheduled.Future Appointments This section includes appointments that were scheduled to occur 6 months from the date of the Encounter, up to a maximum of 20 appointments. The data comes [facility] [place] [facility] Appointment Date/Time Appointment Type Appointment Facili ty Name Jan 27, 2020 03:00 PM AMBULATORY - MEDICINE [facility] Jan 31, 2020 09:00 AM AMBULATORY - MEDICINE [facility] Feb 05, 2020 03:30 PM AMBULATORY - NONE [place] [facility] Feb 18, 2020 01:30 PM [facility] [place] [facility] Feb 24, 2020 06:00 PM AMBULATORY - NONE [place] [facility] Mar 02, 2020 02:30 PM AMBUL[place]ORY - [place]ICINE [place] [facility] Mar 02, 2020 03:30 PM AMBULATORY - MEDICINE [place] [facility] Apr 07, 2020 02:30 PM AM[facility] - [place]GERY [place] [facility] Apr 08, 2020 10:00 AM AMBULATORY - MEDICINE [place] [facility] Apr 08, 2020 11:30 AM AMBUL[facility]ORY - MEDICINE [place] [facility] Apr 10, 2020 09:30 AM AM[facility]UL[facility] - [facility]ICINE [facility] May 27, 2020 08:30 AM AMBUL[place]ORY - [place]ICINE [place] [facility] Social History: Smoking Status (Most current) and Tobacco Use (All prior to encounter date) This section includes the most current, and the historical, smoking and tobacco-related health factors from the [place] facility where the Encounter took place.Current Smoking Status This section includes the most current smoking, or tobacco-related health factor, from the [place] facility where the Encounter took place. Date/Time Current Smoking Status Comment Facility Jun 21, 2019 01:11 PM [place]-TOBACCO QUIT 1 TO < 5 YRS [facility] Tobacco Use History This section includes a history of the smoking, or tobacco-related health factors, that were collected on or before the date of the Encounter. The data comes from the [place] facility where the Encounter took place. Date/Time Smoking Status/Tobacco Use Comment [facility] Jun 21, 2019 01:11 PM [place]-TOBACCO QUIT 1 TO < 5 YRS [facility] Encounter Notes: All associated encounter notes This section contains the clinical notes associated to the Encounter. Date/Time Encounter Note(s) Provider Source Dec 17, 2019 04:01 PM PRIMARY CARE TELEPHONE ENCOUNTER NOTE: GILMAR ELI [facility] LOCAL TITLE: Telephone Note-Primary Care STANDARD TITLE: PRIMARY CARE TELEPHONE ENCOUNTER NOTE DATE OF NOTE: DEC 17, 2019@16:01 ENTRY DATE: DEC 17, 2019@16:02:01 AUTHOR: GILMAR BLOUNT EXP COSIGNER: URGENCY: STATUS: COMPLETED Work Phone: NONE Cell phone: TIME SPENT MEDICAL ADVISOR 18 minutes Stanton reached by phone as part of the phone clinic. Stanton denies any fever, cough or any exposure to known COVID19. denies any recent travel. urged to say home and isolated for [facility] Active Outpatient Medications (excluding Supplie s): Active Outpatient Medications Status 1) ALBUTEROL 90MCG (CFC-F) 200D ORAL INHL INHA LE 2 PUFFS ACTIVE BY MOUTH FOUR TIMES DAILY NEEDED FOR B REATHING 2) BUDESONIDE 160/FORMOTER 4.5MCG 120D INH INH LYNDA 2 ACTIVE PUFFS BY MOUTH TWICE A DAY FOR BREATHING/ RINSE MOUTH WITH WATER,SWISH AROUND AND SPIT OU T AFTER USING INHALER 3) MOMETASONE FUROATE 220MCG ORAL INHL 120 INH LYNDA 2 ACTIVE PUFFS BY MOUTH TWICE A DAY FOR BREATHING/ RINSE MOUTH WITH WATER,SWISH AROUND AND SPIT OU T AFTER USING INHALER 4) MONTELUKAST NA 10MG TAB TAKE ONE TABLET BY MOUTH ACTIVE EVERY MORNING FOR ASTHMA 5) PAROXETINE HCL 30MG TAB TAKE ONE TABLET BY MOUTH ACTIVE EVERY MORNING FOR DEPRESSION AND ANXIETY 6) PROPRANOLOL HCL 20MG TAB TAKE ONE TABLET BY MOUTH ACTIVE TWICE DAILY NEEDED FOR ANXIETY Pending Outpatient Medications Status 1) TIOTROPIUM 18MCG INHL CAP 30 INHALE THE CON TENTS OF PENDING ONE CAPSULE IN INHALER BY MOUTH EVERY MOR DEMETRIUS FOR BREATHING - INHALATION ONLY, DO NOT SWALL OW CAPSULES Active Non-VA Medications Status 1) Non-VA ALOH/DIPH/MAG/LIDO/SIMET SUSP,ORAL 2 0CC MOUTH ACTIVE TWICE A DAY 2) Non-VA AZITHROMYCIN 250MG TAB PKT 6 250MG M OUTH TWICE ACTIVE A DAY 9 Total Medications CONVERSATION based on assessment/plan Reports that he has asthma. Has been seen in the community but would like to be seen at [place] instead. Current inhalers that are he is taking is accurate on the medication list. In addition to asthma, he cates s increasing pain in his right knee. He is service- connected for injuries on his left knee but feel s that overcompensation has causes right need to be jeopardized. Assessment/Plan Asthma. Continue current inhalers as he is relat ively well controlled. New consult placed to pulmonology Right knee pain. Consult placed for physical the rapy to assess him for a supportive knee brace Phone clinic in 6 weeks to check the effectivene ss of the brace. /tyrese/ GILMAR BLOUNT APRN Signed: 12/17/2019 16:25
--- OUTSIDE RECORDS SUMMARY | 2020-05-16 12:49 | XMS_ITS | Encounter Summary ---
:1985 Author Organization [facility] rs Address [address] [place] [address] Care Team Providers Name Role Phone CHEN KUMAR Primary Care Provider Unavailable Selected Encounter This section includes the information on record at [place] for the Encounter. Date/Time Encounter Type Encounter Description Reason Provider Source Oct 29, 2019 08:42 Outpatient Encounter [facility] - IND IHE Encounter Template Text not used by [place] Plan of Treatment: Future Appointments (+ 6 months) and Future Tests (+/- 45 days) The Plan of Treatment section includes future care activities for the patient from all [place] treatment facilities. This section includes future appointments and future orders which are active, pending or scheduled.Future Appointments This section includes appointments that were scheduled to occur 6 months from the date of the Encounter, up to a maximum of 20 appointments. The data comes [facility] [place] [facility] [place] Appointment Date/Time Appointment Type Appointment Facili ty Name Oct 30, 2019 08:30 AM [place] [facility] Nov 28, 2019 10:00 AM AM[place] [facility] Dec 17, 2019 03:00 PM [place]IC[place] [facility] Jan 27, 2020 03:00 PM AMBULATORY - [place]ICINE [place] [facility] Jan 31, 2020 09:00 AM [place]ORY [place]ICINE [place] [facility] Feb 05, 2020 03:30 PM [facility] [place] [facility] Feb 18, 2020 01:30 PM [place] [facility] Feb 24, 2020 06:00 PM AM[facility]ULATORY [place] [facility] Mar 02, 2020 02:30 PM [facility] Mar 02, 2020 03:30 PM [place] [facility] Apr 07, 2020 02:30 PM [facility] Apr 08, 2020 10:00 AM [facility] Apr 08, 2020 11:30 AM [facility] Apr 10, 2020 09:30 AM AMBULATORY - MEDICINE [facility] Social History: Smoking Status (Most current) and Tobacco Use (All prior to encounter date) This section includes the most current, and the historical, smoking and tobacco-related health factors from the [place] facility where the Encounter took place.Current Smoking Status This section includes the most current smoking, or tobacco-related health factor, from the [place] facility where the Encounter took place. Date/Time Current Smoking Status Comment Facility Oct 26, 2018 08:43 AM LIFETIME NON-TOBACCO USER [facility] Tobacco Use History This section includes a history of the smoking, or tobacco-related health factors, that were collected on or before the date of the Encounter. The data comes from the [place] facility where the Encounter took place. Date/Time Smoking Status/Tobacco Use Comment Valerie cardona May 04, 2017 11:15 AM LIFETIME [facility]-TOBACCO [facility] Aug 24, 2016 03:16 PM QUIT TOBACCO USE > 7 YEARS AGO [facility] Oct 13, 2015 09:41 AM V1-PT THINKING ABOUT QUIT [facility] TOBACCO USE May 06, 2015 04:02 PM QUIT TOBACCO USE IN PAST YEAR [facility] Oct 15, 2014 11:30 AM V1-PT NOT INTERESTED IN QUIT [facility] TOBACCO USE Oct 01, 2013 08:26 AM QUIT TOBACCO USE IN PAST YEAR [facility] Encounter Notes: All associated encounter notes This section contains the clinical notes associated to the Encounter. Date/Time Encounter Note(s) Provider Source Oct 29, 2019 08:42 PM INFECTIOUS DISEASE NOTE: KENZIE SILVA [facility] LOCAL TITLE: COVID-19 CANCELLED APPOINTMENT FOL LOW-UP STANDARD TITLE: INFECTIOUS DISEASE NOTE DATE OF NOTE: OCT 29, 2019@20:42 ENTRY DATE: OCT 29, 2019@20:42:14 AUTHOR: KENZIE SILVA EXP COSIGNER: URGENCY: STATUS: COMPLETED Review of cancelled appointments during COVID-19 pandemic: CVP - Past Clinic Visits 08/09/2019 12:00 [facility] SOCIAL [facility] NO-SHOW 07/23/2019 12:15 [facility] SOC[facility] 07/10/2019 13:00 NEW [facility] SOCIAL WORK [facility] 07/02/2019 13:30 [facility] KILN HAND 1 PHONE NO-SHOW 07/01/2019 11:00 [facility] KILN HAND 1 PHONE NO-SHOW 06/24/2019 15:15 NEW MH SW PHONE 05/24/2019 08:00 NEW PACT A TELE NO-SHOW 05/17/2019 08:00 NEW MISC LAB CANCELLED BY CLINIC Date(s) of appointment(s) being reviewed: 07/28 12:00 Clinic Location/Specialty: NEW MH SOCIAL WORK [facility] chart has been reviewed and the ac tion below is indicated for this cancelled appointment: Follow-up: Scheduling action needed /bianca/ KENZIE SILVA Supervisory MSA Signed: 10/29/2019 20:42
--- OUTSIDE RECORDS SUMMARY | 2020-05-16 12:49 | XMS_ITS | Encounter Summary ---
:1985 Author Organization [facility] rs Address [address] [place] [address] Care Team Providers Name Role Phone CHEN KUMAR Primary Care Provider Unavailable Selected Encounter This section includes the information on record at [place] for the Encounter. Date/Time Encounter Type Encounter Reason Provider Source Description Dec 24, 2019 Outpatient TELEPHONE/REHAB ICD-10-CM RANDALJUSTINA MONAE 09:47 AM Encounter AND SUPPORT M25.562 Pain in left knee with Provider Comments: Knee pain (SCT [id number]) IHE Encounter Template Text not used by [facility] Assessments - Encounter Diagnoses This section includes the primary and secondary diagnoses documented forthe Encounter. Date/Time Primary/Secondary Diagnosis Name Provider Source Diagnosis Dec 24, 2019 PRIMARY Pain in left knee JUSTINA GARBER Bartolo 09:47 AM [facility] Plan of Treatment: Future Appointments (+ 6 months) and Future Tests (+/- 45 days) The Plan of Treatment section includes future care activities for the patient from all [place] treatment facilities. This section includes future appointments and future orders which are active, pending or scheduled.Future Appointments This section includes appointments that were scheduled to occur 6 months from the date of the Encounter, up to a maximum of 20 appointments. The data comes from all [facility]. Appointment Date/Time Appointment Type Appointment Facili ty Name Jan 27, 2020 03:00 PM AMBULATORY - MEDICINE [facility] Jan 31, 2020 09:00 AM AMBULATORY - MEDICINE [facility] Feb 05, 2020 03:30 PM AM[facility]ULATORY [place] NONE [place] [facility] [facility] Feb 18, 2020 01:30 PM [place] [facility] Feb 24, 2020 06:00 PM [place] [facility] Mar 02, 2020 02:30 PM [place] [facility] Mar 02, 2020 03:30 PM [place] [facility] Apr 07, 2020 02:30 PM [place] [facility] Apr 08, 2020 10:00 AM [place] [facility] Apr 08, 2020 11:30 AM [place] [facility] Apr 10, 2020 09:30 AM AMBULATORY - MEDICINE [facility] May 27, 2020 08:30 AM AMBULATORY - MEDICINE [facility] Social History: Smoking Status (Most current) and Tobacco Use (All prior to encounter date) This section includes the most current, and the historical, smoking and tobacco-related health factors from the [place] facility where the Encounter took place.Current Smoking Status This section includes the most current smoking, or tobacco-related health factor, from the [place] facility where the Encounter took place. Date/Time Current Smoking Status Comment Facility Oct 26, 2018 08:43 AM LIFETIME NON-TOBACCO USER [facility] Tobacco Use History This section includes a history of the smoking, or tobacco-related health factors, that were collected on or before the date of the Encounter. The data comes from the [place] facility where the Encounter took place. Date/Time Smoking Status/Tobacco Use Comment Valerie cardona May 04, 2017 11:15 AM LIFETIME NON-TOBACCO USER [place] [facility] Aug 24, 2016 03:16 PM QUIT TOBACCO USE > 7 YEARS AGO [facility] Oct 13, 2015 09:41 AM V1-PT THINKING ABOUT QUIT [facility] TOBACCO USE May 06, 2015 04:02 PM QUIT TOBACCO USE IN PAST YEAR [facility] Oct 15, 2014 11:30 AM V1-PT NOT INTERESTED IN QUIT [facility] TOBACCO USE Oct 01, 2013 08:26 AM QUIT TOBACCO USE IN PAST YEAR [facility] Encounter Notes: All associated encounter notes This section contains the clinical notes associated to the Encounter. Date/Time Encounter Note(s) Provider Source Dec 24, 2019 09:47 AM PHYSICAL THERAPY OUTPATIENT CONSULT: JUSTINA HEARD T [facility] LOCAL TITLE: CONSULT: Physical Therapy Outpatie nt STANDARD TITLE: PHYSICAL THERAPY OUTPATIENT CONS ULT DATE OF NOTE: DEC 24, 2019@09:47 ENTRY DATE: DEC 24, 2019@09:47:18 AUTHOR: JUSTINA GARBER EXP COSIGNER: URGENCY: STATUS: COMPLETED To Service: PHYSICAL THERAPY-OUTPATIE NT From Service: NEW PACT A PHONE Requesting Provider: GILMAR BLOUNT Service is to be rendered on an OUTPATIENT basis Place: [facility] Urgency: Routine Clinically Ind. Date: Dec 17, 2019 Orderable Item: PHYSICAL THERAPY-OUTPATIE NT Consult: Consult Request Provisional Diagnosis: Pain in right Knee(ICD-10 -CM M25.561) Reason For Request: M[employer] Decision Support In formation DST ID: [id number] Do not change text above this l ine Physical Therapy-Outpatient Where would the [place] [facility] to be seen[facility]) Requested intervention for Physical Therapy: Equ ipment assessment/education/issue: compression stocking (include amount of compression):support primarily Chart reviewed. in need of right knee s leeve. Measurements are as follows for right knee: 20 5/8 6 above mid p atella and 15 3/8 6 below midpatella. Based on these measurements he shou ld do well with a [employer] Genutrain size 5. I will place a consul t for the item and I encouraged him to reach out with further needs or if he finds this is not supportive enough. Total time 6 minutes /bianca/ Justina Garber, PT,CLT Physical Therapist, licensed in [place] Signed: 12/24/2019 09:50
--- OUTSIDE RECORDS SUMMARY | 2020-05-16 12:49 | XMS_ITS | Encounter Summary ---
:1985 Author Organization [facility] rs Address [address] [place] [address] Care Team Providers Name Role Phone CHEN KUMAR Primary Care Provider Unavailable Selected Encounter This section includes the information on record at [place] for the Encounter. Date/Time Encounter Type Encounter Reason Provider Source Description Oct 30, 2019 Outpatient TELEPHONE/MEDICIN ICD-10-CM G47.9 ZACK KELLEY 08:30 AM Encounter E Sleep disorder, unspecified with Provider Comments: Sleep Disorder, unspecified IHE Encounter Template Text not used by [facility] Assessments - Encounter Diagnoses This section includes the primary and secondary diagnoses documented forthe Encounter. Date/Time Primary/Secondary Diagnosis Name Provider Source Diagnosis Oct 30, 2019 PRIMARY Sleep disorder, RL RUSH ERNA ROSENBAUM 08:30 AM unspecified [facility] Plan of Treatment: Future Appointments (+ 6 months) and Future Tests (+/- 45 days) The Plan of Treatment section includes future care activities for the patient from all [place] treatment facilities. This section includes future appointments and future orders which are active, pending or scheduled.Future Appointments This section includes appointments that were scheduled to occur 6 months from the date of the Encounter, up to a maximum of 20 appointments. The data comes from all [facility]. Appointment Date/Time Appointment Type Appointment Facili ty Name Nov 28, 2019 10:00 AM AMBULATORY - NONE [facility] Dec 17, 2019 03:00 PM AMBULATORY - MEDICINE [facility] Jan 27, 2020 03:00 PM AMBULATORY - MEDICINE [facility] Jan 31, 2020 09:00 AM [place]IC[place] [facility] Feb 05, 2020 03:30 PM AMBULATORY - NONE [place] [facility] Feb 18, 2020 01:30 PM [facility] [place] [facility] Feb 24, 2020 06:00 PM AMBULATORY - NONE [place] [facility] Mar 02, 2020 02:30 PM [place] [facility] Mar 02, 2020 03:30 PM [place] [facility] Apr 07, 2020 02:30 PM [place] - [place] [facility] Apr 08, 2020 10:00 AM [place] [facility] Apr 08, 2020 11:30 AM [place] [facility] Apr 10, 2020 09:30 AM AM[facility]UL[facility]ORY - MEDICINE [facility] Social History: Smoking Status (Most current) and Tobacco Use (All prior to encounter date) This section includes the most current, and the historical, smoking and tobacco-related health factors from the [place] facility where the Encounter took place.Current Smoking Status This section includes the most current smoking, or tobacco-related health factor, from the [place] facility where the Encounter took place. Date/Time Current Smoking Status Comment Facility Oct 26, 2018 08:43 AM LIFETIME NON-TOBACCO USER [facility] Tobacco Use History This section includes a history of the smoking, or tobacco-related health factors, that were collected on or before the date of the Encounter. The data comes from the [place] facility where the Encounter took place. Date/Time Smoking Status/Tobacco Use Comment Valerie cardona May 04, 2017 11:15 AM LIFETIME NON-TOBACCO USER [place] [facility] Aug 24, 2016 03:16 PM QUIT TOBACCO USE > [facility] Oct 13, 2015 09:41 AM V1-PT THINKING ABOUT QUIT [facility] TOBACCO USE May 06, 2015 04:02 PM QUIT [facility] Oct 15, 2014 11:30 AM V1-PT NOT INTERESTED IN QUIT [place] [facility] TOBACCO USE Oct 01, 2013 08:26 AM QUIT TOBACCO USE IN PAST YEAR [facility] Encounter Notes: All associated encounter notes This section contains the clinical notes associated to the Encounter. Date/Time Encounter Note(s) Provider Source Oct 30, 2019 08:49 AM PULMONARY TELEPHONE ENCOUNTER NOTE: RL RUSH [facility] LOCAL TITLE: Telephone Note/Sleep Medicine STANDARD TITLE: PULMONARY TELEPHONE ENCOUNTER NO TE DATE OF NOTE: OCT 30, 2019@08:49 ENTRY DATE: OCT 30, 2019@08:49:34 AUTHOR: RL RUSH EXP COSIGNER: URGENCY: STATUS: COMPLETED Diagnosis: FADIA Time spent on phone with patient: 15 min PAP device type: Resmed airsense 10 auto Current pressure settings: auto 5-20 Current mask: small simplus FFM Mask history and reason for change: PAP Download: via [employer] Download period: 1 year % days used: 33% % days at least 4 hrs: 25% average hours used: 5.4 hours average pressure: 6.8 cwp 95% pressure: 9.6 cwp 95th% leak: 15.4 L/M AHI: 1.3 (HI=0.3 ,SATYA=0.1 ,OAI=0.9) Condition of machine: did not see in phone cl inic Assessment and Plan: Patient continues to struggle with regul ar use of cpap machine. He says he has not used it for several months b/c the mask ripp ed many months ago and he has been tapping it up. WE went over all the numbers to call for what he ever needs. At this time I am ordering a new mask and RTC in 6 months to check compliance improvement. /es/ RL RUSH Respiratory Therapist Signed: 10/30/2019 08:56
--- OUTSIDE RECORDS SUMMARY | 2020-05-16 12:50 | XMS_ITS | Encounter Summary ---
:1985 Author Organization Department of [facility] rs Address [address] [place] [address] Care Team Providers Name Role Phone CHEN KUMAR Primary Care Provider Unavailable Selected Encounter This section includes the information on record at [place] for the Encounter. Date/Time Encounter Type Encounter Description Reason Provider Source Aug 09, 2019 12:00 Outpatient Encounter [facility] Encounter Template Text not used by [place] Plan of Treatment: Future Appointments (+ 6 months) and Future Tests (+/- 45 days) The Plan of Treatment section includes future care activities for the patient from all [place] treatment facilities. This section includes future appointments and future orders which are active, pending or scheduled.Future Appointments This section includes appointments that were scheduled to occur 6 months from the date of the Encounter, up to a maximum of 20 appointments. The data comes from all [facility]. Appointment Date/Time Appointment Type Appointment Facili ty Name Oct 30, 2019 08:30 AM AMBULATORY - MEDICINE [facility] Nov 28, 2019 10:00 AM AMBULATORY - NONE [facility] Dec 17, 2019 03:00 PM AMBULATORY - MEDICINE [facility] Jan 27, 2020 03:00 PM AMBULATORY - MEDICINE [facility] Jan 31, 2020 09:00 AM AMBULATORY - MEDICINE [facility] Feb 05, 2020 03:30 PM AMBULATORY - NONE [facility] Social History: Smoking Status (Most current) and Tobacco Use (All prior to encounter date) This section includes the most current, and the historical, smoking and tobacco-related health factors from the [facility] where the Encounter took place.Current Smoking Status This section includes the most current smoking, or tobacco-related health factor, from the [place] facility where the Encounter took place. Date/Time Current Smoking Status Comment Facility Jun 21, 2019 01:11 PM [place]-TOBACCO QUIT 1 TO < 5 YRS [facility] Tobacco Use History This section includes a history of the smoking, or tobacco-related health factors, that were collected on or before the date of the Encounter. The data comes from the [facility] where the Encounter took place. Date/Time Smoking Status/Tobacco Use Comment [facility] it Jun 21, 2019 01:11 PM [place]-TOBACCO QUIT 1 TO < 5 YRS [facility] Encounter Notes: All associated encounter notes This section contains the clinical notes associated to the Encounter. Date/Time Encounter Note(s) Provider Source Aug 09, 2019 12:14 PM NO SHOW NOTE: SAGE CABEZAS [facility] LOCAL TITLE: Mental Health No Show/Clinic Cance l/Conversion Note STANDARD TITLE: NO SHOW NOTE DATE OF NOTE: AUG 09, 2019@12:14 ENTRY DATE: AUG 09, 2019@12:14:17 AUTHOR: SAGE CABEZAS EXP COSIGNER: URGENCY: STATUS: COMPLETED MENTAL HEALTH NO SHOW/CLINIC CANCELLATION/CLINIC CONVERSION NOTE Appointment Date & Time: Jul@12:00 ACTION: Provider attempted to reach [facility] to d iscuss: (X) No Show Cancellation by clinic Cancellation by [facility] Conversion of clinic appointment REASON: for no show or clinic cancel/reschedule: Attempted telephone contact three times (1200, [phone], [phone]) with no response. Voicemail full so message cannot be left . No show letter mailed by [facility] staff. OUTCOME: Reached [facility] and Clinic rescheduled to: [facility] Telephone Clinic Face to Face Clinic New clinic appointment date/time: 's email address: Left [facility] voicemail message: no Any Acute Safety Concerns? No If Yes, Action Taken or Further Follow-up: Co-sign [facility] at location to this note to take a ction on the clinic appt and add any additional instructi ons to [facility] group. /es/ YOVANY King Addictions Therapist Signed: 08/09/2019 12:15 Receipt Acknowledged By: 08/14/2019 13:14 /es/ HARSHA LOGAN [facility]KH[facility] Medical Support Ass dion
--- OUTSIDE RECORDS SUMMARY | 2020-05-16 12:50 | XMS_ITS | Encounter Summary ---
:1985 Author Organization [facility] rs Address [address] [place] [address] Care Team Providers Name Role Phone CHEN KUMAR Primary Care Provider Unavailable Selected Encounter This section includes the information on record at [place] for the Encounter. Date/Time Encounter Type Encounter Reason Provider Source Description July 10, 2019 Outpatient MENTAL HEALTH ICD-10-CM RAULITOSAGE W 01:00 PM Encounter CLINIC - IND F43.12 Post-traumatic stress disorder, chronic with Provider Comments: Chronic post-traumatic stress disorder following combat ([facility] [id number]) IHE Encounter Template Text not used by [facility] Assessments - Encounter Diagnoses This section includes the primary and secondary diagnoses documented forthe Encounter. Date/Time Primary/Secondary Diagnosis Name Provider Source Diagnosis July 10, 2019 PRIMARY Post-traumatic GAGE HASKINS [facility] 01:40 PM stress disorder, NA CLINIC chronic Plan of Treatment: Future Appointments (+ 6 months) and Future Tests (+/- 45 days) The Plan of Treatment section includes future care activities for the patient from all [place] treatment facilities. This section includes future appointments and future orders which are active, pending or scheduled.Future Appointments This section includes appointments that were scheduled to occur 6 months from the date of the Encounter, up to a maximum of 20 appointments. The [facility] [place] [facility] Appointment Date/Time Appointment Type Appointment Facili ty Name July 23, 2019 12:15 PM AMBULATORY - PS[facility]RY [facility] Aug 09, 2019 12:00 PM AMBULATORY - PS[facility]CHIATRY [facility] Oct 30, 2019 08:30 AM AMBULATORY - MEDICINE [facility] Nov 28, 2019 10:00 AM AMBULATORY - NONE [facility] Dec 17, 2019 03:00 PM AMBULATORY - MEDICINE [facility] Social History: Smoking Status (Most current) and Tobacco Use (All prior to encounter date) This section includes the most current, and the historical, smoking and tobacco-related health factors from the [place] facility where the Encounter took place.Current Smoking Status This section includes the most current smoking, or tobacco-related health factor, from the [place] facility where the Encounter took place. Date/Time Current Smoking Status Comment Facility Jun 21, 2019 01:11 PM [place]-TOBACCO QUIT 1 TO < 5 YRS [facility] Tobacco Use History This section includes a history of the smoking, or tobacco-related health factors, that were collected on or before the date of the Encounter. The data comes from the [place] facility where the Encounter took place. Date/Time Smoking Status/Tobacco Use Comment [facility] it Jun 21, 2019 01:11 PM [place]-TOBACCO QUIT 1 TO < 5 YRS [facility] Encounter Notes: All associated encounter notes This section contains the clinical notes associated to the Encounter. Date/Time Encounter Note(s) Provider Source July 10, 2019 01:40 PM MENTAL HEALTH TREATMENT PLAN NOTE: Jessica CABEZAS [facility] LOCAL TITLE: Mental Health Treatment Plan STANDARD TITLE: MENTAL HEALTH TREATMENT PLAN NOT E DATE OF NOTE: JULY 10, 2019@13:40 ENTRY DATE: JULY 10, 2019@13:41:36 AUTHOR: SAGE CABEZAS EXP COSIGNER: URGENCY: STATUS: COMPLETED DATE/TIME PATIENT ENTERED TREATMENT: 05/11/2018 1:50:58 PM MENTAL HEALTH TREATMENT PLAN - June, @ 01 :40 PM Visit Date: June, @ 13:00 - [facility] C TREATMENT PLAN TYPE: Initial PRIMARY CLINIC OR PROGRAM: Outpatient Care CLINICS OR PROGRAMS: Outpatient Care MH STONEWORK TRACER: MISTI BEAL / MH PHARM TEAM MEMBERS: MISTI BEAL: PHARMACIST SAGE CABEZAS: MANAGER BUSINESS PLANNING PATIENT'S PERCEPTION OF NEEDS AND PREFERENCES: I need to remain in school I need to learn about my illness PATIENT'S STRENGTHS/ABILITIES: Insightful - aware of illness Expressed desire/motivation for change Interested in vocational development Employed or has income/benefits [employer] Capable of [place] PATIENT'S BARRIERS TO CARE: Chronic psychiatric symptoms, without remission PATIENT PARTICIPATION IN TREATMENT PLANNING: MET WITH PROVIDER. PATIENT AGREED TO PLAN (draft) DISCUSSED. FAMILY PARTICIPATION IN TREATMENT PLANNING: PATIENT DECLINED FAMILY PARTICIPATION. MENTAL HEALTH DIAGNOSES AND RELEVANT MEDICAL CON DITIONS: Depressive disorder ([facility] [id number]) Chronic post-traumatic stress disorder following combat ([facility] [id number]) Panic attack ([facility] [id number]) MEDICATIONS: ALBUTEROL 90MCG (CFC-F) 200D ORAL INHL - Sig: I NHALE 2 PUFFS BY MOUTH FOUR TIMES DAILY NEEDED FOR BREATHING - Outpatient - Status: ACTIVE - Refills: 2 - Issued: 10/11/2017 - Last filled: 03/02/2018 - Expires: 10/12/2018 ATORVASTATIN CALCIUM 20MG TAB - Sig: TAKE ONE T ABLET BY MOUTH EVERY DAY TO LOWER CHOLESTEROL - Outpatient - Status: ACTIVE - Refills: 2 - Issued: 11/20/2017 - Last filled: 03/02/2018 - E xpires: 11/21/2018 BUDESONIDE 160/FORMOTER 4.5MCG 120D INH - Sig: INHALE 2 PUFFS BY MOUTH TWICE A DAY FOR BREATHING/RINSE MOUTH WITH - Outpatient - Status: ACTIVE - Refills: 1 - Issued: 07/12/2017 - Last filled: 03/02/2018 - Expires: 07/13/2018 MOMETASONE FUROATE 220MCG ORAL INHL 120 - Sig: INHALE 2 PUFFS BY MOUTH TWICE A DAY FOR BREATHING/RINSE MOUTH WITH - Outpatient - Status: ACTIVE - Refills: 3 - Issued: 03/02/2018 - Last filled: 03/05/2018 - Expires: 03/03/2019 MONTELUKAST NA 10MG TAB - Sig: TAKE ONE TABLET BY MOUTH EVERY MORNING FOR ASTHMA - Outpatient - Status: ACTIVE - Refills: 1 - Issued: 07/12/2017 - Last filled: 03/02/2018 - E xpires: 07/13/2018 TIOTROPIUM 18MCG INHL CAP 30 - Sig: INHALE THE CONTENTS OF ONE CAPSULE IN INHALER BY MOUTH EVERY MORNING - Out patient - Status: ACTIVE - Refills: 1 - Issued: 07/12/2017 - Last filled: 03/02/2018 - Expires: 07/13/2018 ALOH/DIPH/MAG/LIDO/SIMET SUSP,ORAL - 20CC MOUTH TWICE A DAY - Non-[place] - Status: ACTIVE - Refills: N/A - Issued: N/A - Last filled: N/A - Expires: 08/26/2014 AZITHROMYCIN 250MG TAB PKT 6 - 250MG MOUTH TWIC E A DAY - Non-[place] - Status: ACTIVE - Refills: N/A - Issued: N/A - La st filled: N/A - Expires: 08/26/2014 TREATMENT PLAN: PROBLEM: Problem/Need: [PTSD]: I have been exper iencing the following post-traumatic stress symptom s: irritability, nihilism, intrusive thoughts, sleep pro blems, hypervigilance. GOAL: I want to reduce irritability, nihilis m, intrusive thoughts, sleep problems, hypervigilan ce. OBJECTIVE: I will learn how to improve how I handle the distress I feel when I am exposed to trigger s associated with trauma. Progress will be measured through self-report INTERVENTION: [PSYCHOTHERAPY] My provide r will work with me to achieve this goal and obje ctive through individual psychodynamic psychotherap y Provider Type: Controls Engineer One time(s) per Mon for 12 months PLAN RENEWAL DATE: 07/08/2020 /bianca/ Sage Cabezas [facility] Addictions Therapist Signed: 07/10/2019 13:41 Receipt Acknowledged By: 07/10/2019 15:48 /bianca/ Talib YOON, [facility] MENTAL HEALTH CLINI SUSY PHARMACIST July 10, 2019 01:00 PM TELEHEALTH NOTE: SAGE CABEZAS [facility] LOCAL TITLE: VIDEO-CONNECT NOTE STANDARD TITLE: TELEHEALTH NOTE DATE OF NOTE: JULY 10, 2019@13:00 ENTRY DATE: JULY 10, 2019@13:01:01 AUTHOR: SAGE CABEZAS EXP COSIGNER: URGENCY: STATUS: COMPLETED [facility] Video Connect appointment: Provider confirmed that is currently loc ated at the following address listed in their [facility] chart. [address] [place] [id number] e-911: Call [phone] to speak with an agent who can put you in touch with a extrusion process operator at the Patient's location. Y ou must have the physical location (address) where the Patient is currentl y located. Verbal informed consent has been obtained. Duration of session: 33-45 minutes Mr. Lockhart stated that he has been in a bit of a f unk recently. He stated that over the past few weeks he has noticed increases in anxiety, nihilism, sleep problems, and irritability. He stated that his irritability has been the most troubling for him as he noted that he has f ound himself having more frequent low-intensity arguments with his girlfr iend. He discussed some of the triggers for his irritability, noting that w hile these are valid triggers for him they also have existed during times wher e they were not experienced with such irritability. He discussed some of hi s recent intrusive thoughts and expressed the idea that he may have been capo ling with a traumatic anniversary recently which he has not figured ou t the meaning of at this time. He stated, however, that he feels that ov erall he has dealt better with his downturn of mood than in the past--ackn owledging increases in self- awareness, ability communicating effectively, an d ability to avoid heavy drinking. Mr. Lockhart denied any current SI, HI, or psychotic symptoms at this time. DSM-V DIAGNOSIS: PTSD (F43.1); Alcohol Use Disorder, Mild (F10.10 ) TREATMENT PLAN: 1. Engage with Mr. Lockhart in individual outpatien t psychotherapy. Mr. Lockhart selected the following goals for treatment: 1) Develop increased understanding of past traumatic events and how t hey have shaped his experience of self and life; and 2) Increase o verall sense of quality of life and define what is needed to create a meani ngful life. Follow-up scheduled for 23 Jul 2019 via [facility]. 2. Mr. Lockhart is not available for group therapy at this time. 3. Mr. Macdonald will continue psychiatric medicatio n management with Misti Beal. 4. Mr. Macdonald expressed an understanding of crisi s management options--to include [facility], walk-in to [facility] psychiatric emergency room, or local crisis management [facility]. was given the clinician's contact inform ation as well as the contact numbers listed below: Yes Contact numbers: * [facility] ([facility] of operation: 8am - 4pm): Telephone#: [phone] Ext [phone] or [phone] Ext [phone] * After hours: Telephone#: [phone] ext [phone] Or if an emergency call: 911 * National Crisis Hotline (available 24 hours 7 days a week): Telephone#: 321.307.4887 Press 1 Text: 317830 [place] Suicide Severity Rating Scale (C-SSRS) screener 1. Over the past month, have you wished you we re or wished you could go to sleep and not wake up? No 2. Over the past month, have you had any actua l thoughts of killing yourself? No 3. Over the past month, have you been thinking about how you might do this? Response not required due to responses to othe r questions. 4. Over the past month, have you had these tho ughts and had some intention of acting on them? Response not required due to responses to othe r questions. 5. Over the past month, have you started to wo rk out or worked out the details of how to kill yourself? Response not required due to responses to othe r questions. 6. If yes, at any time in the past month did y ou intend to carry out this plan? Response not required due to responses to othe r questions. 7. In your lifetime, have you ever done anythi ng, started to do anything, or prepared to do anything to end y our life (for example, collected pills, obtained a gun, gave away robinson uables, went to the roof but didn't jump)? No 8. If YES, was this within the past 3 months? Response not required due to responses to othe r questions. /bianca/ Sage Cabezas [facility] Addictions Therapist Signed: 07/10/2019 13:40
--- OUTSIDE RECORDS SUMMARY | 2020-05-16 12:50 | XMS_ITS | Encounter Summary ---
:1985 Author Organization [facility] rs Address [address] [place] [address] Care Team Providers Name Role Phone CHEN KUMAR Primary Care Provider Unavailable Selected Encounter This section includes the information on record at [place] for the Encounter. Date/Time Encounter Type Encounter Description Reason Provider Source June 28, 2019 02:40 Outpatient Encounter ADMIN PAT ACTIVTIES PM (MASNONCT) IHE Encounter Template Text not used by [place] Plan of Treatment: Future Appointments (+ 6 months) and Future Tests (+/- 45 days) The Plan of Treatment section includes future care activities for the patient from all [place] treatment facilities. This section includes future appointments and future orders which are active, pending or scheduled.Future Appointments This section includes appointments that were scheduled to occur 6 months from the date of the Encounter, up to a maximum of 20 appointments. The data comes [facility] [place] [facility] Appointment Date/Time Appointment Type Appointment Facili ty Name July 01, 2019 11:00 AM AMBULATORY - MEDICINE [facility] July 02, 2019 01:30 PM AMBULATORY - MEDICINE [facility] July 10, 2019 01:00 PM AMBULATORY - PSYCHIATRY [facility] July 23, 2019 12:15 PM AMBULATORY - PSYCHIATRY [facility] Aug 09, 2019 12:00 PM AMBULATORY - PSYCHIATRY [facility] Oct 30, 2019 08:30 AM AMBULATORY - MEDICINE [facility] Nov 28, 2019 10:00 AM AMBULATORY - NONE [facility] Dec 17, 2019 03:00 PM AMBULATORY - MEDICINE [facility] Social History: Smoking Status (Most current) and Tobacco Use (All prior to encounter date) This section includes the most current, and the historical, smoking and tobacco-related health factors from the [place] facility where the Encounter took place.Current Smoking Status This section includes the most current smoking, or tobacco-related health factor, from the [place] facility where the Encounter took place. Date/Time Current Smoking Status Comment Facility Oct 26, 2018 08:43 AM LIFETIME NON-TOBACCO USER [facility] Tobacco Use History This section includes a history of the smoking, or tobacco-related health factors, that were collected on or before the date of the Encounter. The data comes from the [place] facility where the Encounter took place. Date/Time Smoking Status/Tobacco Use Comment [facility] [place] May 04, 2017 11:15 AM LIFETIME NON-TOBACCO USER [facility] Aug 24, 2016 03:16 PM QUIT TOBACCO USE > 7 YEARS AGO [facility] Oct 13, 2015 09:41 AM V1-PT THINKING ABOUT QUIT [facility] TOBACCO USE May 06, 2015 04:02 PM QUIT TOBACCO USE IN PAST YEAR [facility] Oct 15, 2014 11:30 AM V1-PT NOT INTERESTED IN QUIT [facility] TOBACCO USE Oct 01, 2013 08:26 AM QUIT TOBACCO USE IN PAST YEAR [facility] Encounter Notes: All associated encounter notes This section contains the clinical notes associated to the Encounter. Date/Time Encounter Note(s) Provider Source June 28, 2019 02:40 PM ADMINISTRATIVE NOTE: TRINY CASEY [facility] LOCAL TITLE: Has Admin Note [facility] STANDARD TITLE: ADMINISTRATIVE NOTE DATE OF NOTE: JUNE 28, 2019@14:40 ENTRY DATE: JUNE 28, 2019@14:40:52 AUTHOR: TRINY CASEY EXP COSIGNER: URGENCY: STATUS: COMPLETED Reason for call: Called , left voicemail to schedule an appt for [facility] GRINDER DRESSER 1 TELE. Sent attempt to contact sherrie zhong Clinic Name: [facility] GRINDER DRESSER 1 TELE /bianca/ TRINY CASEY MSA Signed: 06/28/2019 14:41
--- OUTSIDE RECORDS SUMMARY | 2020-05-16 12:50 | XMS_ITS | Encounter Summary ---
:1985 Author Organization [facility] rs Address [address] [place] [address] Care Team Providers Name Role Phone CHEN KUMAR Primary Care Provider Unavailable Selected Encounter This section includes the information on record at [place] for the Encounter. Date/Time Encounter Type Encounter Description Reason Provider Source Jun 19, 2019 03:27 Outpatient Encounter TELEPHONE TRIAGE PM IHE Encounter Template Text not used by [place] Plan of Treatment: Future Appointments (+ 6 months) and Future Tests (+/- 45 days) The Plan of Treatment section includes future care activities for the patient from all [place] treatment facilities. This section includes future appointments and future orders which are active, pending or scheduled.Future Appointments This section includes appointments that were scheduled to occur 6 months from the date of the Encounter, up to a maximum of 20 appointments. The data [facility] [place] [facility] Appointment Date/Time Appointment Type Appointment Facili ty Name Jun 24, 2019 03:15 PM [facility] July 01, 2019 11:00 AM [facility] July 02, 2019 01:30 PM [facility] [place] [facility] July 10, 2019 01:00 PM AMBULATORY - PS[facility]IATRY [facility] July 23, 2019 12:15 PM AMBULATORY - [facility] Aug 09, 2019 12:00 PM AMBULATORY - [facility]ATRY [facility] Oct 30, 2019 08:30 AM AM[facility]ORY [facility]ICINE [facility] Nov 28, 2019 10:00 AM AMBULATORY - NONE [facility] Dec 17, 2019 03:00 PM AMBULATORY - MEDICINE [facility] Social History: Smoking Status (Most current) and Tobacco Use (All prior to encounter date) This section includes the most current, and the historical, smoking and tobacco-related health factors from the [place] facility where the Encounter took place.Current Smoking Status This section includes the most current smoking, or tobacco-related health factor, from the [place] facility where the Encounter took place. Date/Time Current Smoking Status Comment Facility Oct 26, 2018 08:43 AM LIFETIME NON-TOBACCO USER [facility] Tobacco Use History This section includes a history of the smoking, or tobacco-related health factors, that were collected on or before the date of the Encounter. The data comes from the [place] facility where the Encounter took place. Date/Time Smoking Status/Tobacco Use Comment [facility] [place] May 04, 2017 11:15 AM LIFETIME NON-TOBACCO USER [facility] Aug 24, 2016 03:16 PM QUIT TOBACCO USE > 7 YEARS AGO [facility] Oct 13, 2015 09:41 AM V1-PT THINKING ABOUT QUIT [facility] TOBACCO USE May 06, 2015 04:02 PM QUIT TOBACCO USE IN PAST YEAR [facility] Oct 15, 2014 11:30 AM V1-PT NOT INTERESTED IN QUIT [facility] TOBACCO USE Oct 01, 2013 08:26 AM QUIT TOBACCO USE IN PAST YEAR [facility] Encounter Notes: All associated encounter notes This section contains the clinical notes associated to the Encounter. Date/Time Encounter Note(s) Provider Source Jun 19, 2019 03:27 PM PRIMARY CARE ADMINISTRATIVE NOTE: TRINI DELGADO [facility] LOCAL TITLE: Administrative Note/Primary Care STANDARD TITLE: PRIMARY CARE ADMINISTRATIVE NOTE DATE OF NOTE: JUN 19, 2019@15:27 ENTRY DATE: JUN 19, 2019@15:27:55 AUTHOR: TRINI DELGADO EXP COSIGNER: URGENCY: STATUS: COMPLETED Administrative Note/Primary Care Has ADDE NDA Patient requests medical social worker call. /bianca/ TRINI DELGADO MSA Signed: 06/19/2019 15:28 Receipt Acknowledged By: 06/20/2019 10:16 /es/ Nathanael Choudhary, LIC SW Addictions Therapis t 06/20/2019 ADDENDUM STATUS: COMPLETED Attempted to return phone ca ll from Mr. Lockhart. Call went directly to voicemail. Voicemail left requesting callback. /bianca/ Nathanael Choudhary [employer] Addictions Therapist Signed: 06/20/2019 10:16 06/21/2019 ADDENDUM STATUS: COMPLETED Spoke with Mr. Lockhart over the telephone. He stat ed that he is stable and is requesting an appointment. Agreed to a phone appointment on Monday, 24 June 2019 at 1515. /bianca/ YOVANY King Addictions Therapist Signed: 06/21/2019 11:58
--- OUTSIDE RECORDS SUMMARY | 2020-05-16 12:50 | XMS_ITS | Encounter Summary ---
:1985 Author Organization Department of [facility] rs Address [address] [place] [address] Care Team Providers Name Role Phone CHEN KUMAR Primary Care Provider Unavailable Selected Encounter This section includes the information on record at [place] for the Encounter. Date/Time Encounter Type Encounter Description Reason Provider Source Sep 24, 2019 11:50 Outpatient Encounter TELEPHONE TRIAGE AM IHE Encounter Template Text not used by [place] Plan of Treatment: Future Appointments (+ 6 months) and Future Tests (+/- 45 days) The Plan of Treatment section includes future care activities for the patient from all [place] treatment facilities. This section includes future appointments and future orders which are active, pending or scheduled.Future Appointments This section includes appointments that were scheduled to occur 6 months from the date of the Encounter, up to a maximum of 20 appointments. The data [facility] [place] [facility] Appointment Date/Time Appointment Type Appointment Facili ty Name Oct 30, 2019 08:30 AM [place] [facility] Nov 28, 2019 10:00 AM [place] [facility] Dec 17, 2019 03:00 PM [place] [facility] Jan 27, 2020 03:00 PM [place] [facility] Jan 31, 2020 09:00 AM [place] [facility] Feb 05, 2020 03:30 PM [place] [facility] Feb 18, 2020 01:30 PM [place] [facility] Feb 24, 2020 06:00 PM [place]ONE [place] [facility] Mar 02, 2020 02:30 PM AMBULATORY - MEDICINE [facility] Mar 02, 2020 03:30 PM AMBULATORY - MEDICINE [facility] Social History: Smoking Status (Most current) and Tobacco Use (All prior to encounter date) This section includes the most current, and the historical, smoking and tobacco-related health factors from the [place] facility where the Encounter took place.Current Smoking Status This section includes the most current smoking, or tobacco-related health factor, from the [place] facility where the Encounter took place. Date/Time Current Smoking Status Comment Facility Oct 26, 2018 08:43 AM LIFETIME NON-TOBACCO USER [facility] Tobacco Use History This section includes a history of the smoking, or tobacco-related health factors, that were collected on or before the date of the Encounter. The data comes from the [place] facility where the Encounter took place. Date/Time Smoking Status/Tobacco Use Comment [facility] May 04, 2017 11:15 AM LIFETIME NON-TOBACCO USER [facility] Aug 24, 2016 03:16 PM QUIT TOBACCO USE > 7 YEARS AGO [facility] Oct 13, 2015 09:41 AM V1-PT THINKING ABOUT QUIT [facility] TOBACCO USE May 06, 2015 04:02 PM QUIT TOBACCO USE IN PAST YEAR [facility] Oct 15, 2014 11:30 AM V1-PT NOT INTERESTED IN QUIT [facility] TOBACCO USE Oct 01, 2013 08:26 AM QUIT TOBACCO USE IN PAST YEAR [facility] Encounter Notes: All associated encounter notes This section contains the clinical notes associated to the Encounter. Date/Time Encounter Note(s) Provider Source Sep 24, 2019 11:50 AM TELEPHONE ENCOUNTER NOTE: NABOR EM [facility] LOCAL TITLE: VISN 1 CCC MED RENEWAL [facility] STANDARD TITLE: TELEPHONE ENCOUNTER NOTE DATE OF NOTE: SEP 24, 2019@11:50:32 ENTRY DATE: SEP 24, 2019@11:59:47 AUTHOR: NABOR EM EXP COSIGNER: URGENCY: STATUS: COMPLETED VISN 1 CCC MED RENEWAL Has ADDENDA Type of call: MEDICATION -ACTION REQUIRED. Caller Response: *OTHER The patient, STEVE ORTIZ ([id number]) Hayden ne: called the call center. Comments: [place] is using his INHL more often due to this summer's humidity. He would like to have the following reinstated and have s ent: BUDESONIDE 160/FORMOTER 4.5MCG 120D INH TIOTROPIUM CAP,INHL 18MCG MONTELUKAST TAB 10MG Please renew and send: PAROXETINE TAB 30MG PROPRANOLOL TAB 20MG ( 09/13/19) Evaluation/Management Code: HC PRO PHONE CALL 5- 10 MIN ([phone]). Starting at: 09/24/2019 @ 11:50:32 AM Ending at: 09/24/2019 @ 11:58:54 AM Length: 8 minutes. Author: NABOR EM Caller Area: [facility] Chief Complaint: Not applicable to call. Class Code: Other specified counseling. Contact Patient's Email Address: [email or web address] /bianca/ NABOR EM AMSA Signed: 09/24/2019 11:59 Receipt Acknowledged By: 09/26/2019 04:51 /es/ GILMAR BLOUNT APRN 09/26/2019 13:04 /es/ DANIELLE PAYTON LPN for KIET LAGUERRE 09/26/2019 13:04 /bianca/ DANIELLE PAYTON LPN 09/30/2019 08:44 /es/ Talib YOON, BCPP [facility] SUSY PHARMACIST 09/24/2019 ADDENDUM STATUS: COMPLETED nursing unable to fill these at this time. PCP to renew/refill as appropriate. /bianca/ KIET LAGUERRE REGISTERED NURSE Signed: 09/24/2019 12:14
--- OUTSIDE RECORDS SUMMARY | 2020-05-16 12:50 | XMS_ITS | Encounter Summary ---
:1985 Author Organization Department of [facility] rs Address [address] [place] [address] Care Team Providers Name Role Phone CHEN KUMAR Primary Care Provider Unavailable Selected Encounter This section includes the information on record at [place] for the Encounter. Date/Time Encounter Type Encounter Description Reason Provider Source May 24, 2019 08:00 Outpatient Encounter TELEPHONE PRIMARY CARE IHE Encounter Template Text not used by [place] Plan of Treatment: Future Appointments (+ 6 months) and Future Tests (+/- 45 days) The Plan of Treatment section includes future care activities for the patient from all [place] treatment facilities. This section includes future appointments and future orders which are active, pending or scheduled.Future Appointments This section includes appointments that were scheduled to occur 6 months from the date of the Encounter, up to a maximum of 20 appointments. The data comes from all [place] [facility] Appointment Date/Time Appointment Type Appointment Facili ty Name Jun 24, 2019 03:15 PM AMBULATORY [place] [facility] July 01, 2019 11:00 AM AM[place]ORY [place] [facility] July 02, 2019 01:30 PM [place] [facility] July 10, 2019 01:00 PM AMBULATORY - PS[facility]CHIATRY [facility] [place] July 23, 2019 12:15 PM AMBULATORY - PSYCHIATRY [facility] Aug 09, 2019 12:00 PM AMBULATORY - PSYCHIATRY [facility] Oct 30, 2019 08:30 AM [place]IC[place] [facility] Encounter Notes: All associated encounter notes This section contains the clinical notes associated to the Encounter. Date/Time Encounter Note(s) Provider Source Oct 24, 2019 12:32 PM INFECTIOUS DISEASE NOTE: TREESA HASKINS [facility] LOCAL TITLE: COVID-19 CANCELLED APPOINTMENT FOL LOW-UP STANDARD TITLE: INFECTIOUS DISEASE NOTE DATE OF NOTE: OCT 24, 2019@12:32 ENTRY DATE: OCT 24, 2019@12:34:17 AUTHOR: TERESA HASKINS EXP COSIGNER: URGENCY: STATUS: COMPLETED COVID-19 CANCELLED APPOINTMENT FOLLOW-UP Has ADDENDA Review of cancelled appointments during COVID-19 pandemic: CVP - Past Clinic Visits 08/09/2019 12:00 NEW MH SOCIAL WORK [facility] NO-SHOW 07/23/2019 12:15 NEW MH SOCIAL WORK [facility] 07/10/2019 13:00 NEW MH SOCIAL WORK [facility] 07/02/2019 13:30 [facility] TESTING TECH 1 PHONE NO-SHOW 07/01/2019 11:00 [facility] TESTING TECH 1 PHONE NO-SHOW 06/24/2019 15:15 NEW MH SW PHONE 05/24/2019 08:00 NEW PACT A TELE NO-SHOW 05/17/2019 08:00 NEW MISC LAB CANCELLED BY CLINIC Date(s) of appointment(s) being reviewed: 05/23 Clinic Location/Specialty: New Pact A Tele The 's chart has been reviewed and the ac tion below is indicated for this cancelled appointment: Follow-up: Scheduling action needed - left [phone]- will attempt to follow up again - 05/24/19-AVV .. no ans when pcp attempt call /bianca/ TERESA KEATING Signed: 10/24/2019 12:37 11/16/2019 ADDENDUM STATUS: COMPLETED Please attempt 2nd call AND send a letter, thank s /bianca/ MELYSSA RUFFIN TCT/Health Tech Signed: 11/16/2019 09:01 Receipt Acknowledged By: 11/18/2019 12:01 /dipak KEATING
--- OUTSIDE RECORDS SUMMARY | 2020-05-16 12:50 | XMS_ITS | Encounter Summary ---
:1985 Author Organization Department of [facility] rs Address [address] [place] [address] Care Team Providers Name Role Phone CHEN KUMAR Primary Care Provider Unavailable Selected Encounter This section includes the information on record at [place] for the Encounter. Date/Time Encounter Type Encounter Reason Provider Source Description July 23, 2019 Outpatient MENTAL HEALTH ICD-10-CM SAGE CHOUDHARY 12:15 PM Encounter [facility] F43.12 Post-traumatic stress disorder, chronic with Provider Comments: Chronic post-traumatic stress disorder following combat ([facility] [id number]) IHE Encounter Template Text not used by [place] Assessments - Encounter Diagnoses This section includes the primary and secondary diagnoses documented forthe Encounter. Date/Time Primary/Secondary Diagnosis Name Provider Source Diagnosis July 23, 2019 PRIMARY Post-traumatic GAGE HASKINS [facility] 12:45 PM stress disorder, NA CLINIC chronic Plan of Treatment: Future Appointments (+ 6 months) and Future Tests (+/- 45 days) The Plan of Treatment section includes future care activities for the patient from all [place] treatment facilities. This section includes future appointments and future orders which are active, pending or scheduled.Future Appointments This section includes appointments that were scheduled to occur 6 months from the date of the Encounter, up to a maximum of 20 appointments. The data comes from all [place] [facility] Appointment Date/Time Appointment Type Appointment Facili ty Name Aug 09, 2019 12:00 PM AMBULATORY - PSYCHIATRY [facility] [place] Oct 30, 2019 08:30 AM [facility] Nov 28, 2019 10:00 AM [facility]ULAT[facility] - NONE [facility] Dec 17, 2019 03:00 PM AMBULATORY - MEDICINE [facility] Social History: Smoking Status (Most current) and Tobacco Use (All prior to encounter date) This section includes the most current, and the historical, smoking and tobacco-related health factors from the [facility] where the Encounter took place.Current Smoking Status This section includes the most current smoking, or tobacco-related health factor, from the [place] facility where the Encounter took place. Date/Time Current Smoking Status Comment Facility Jun 21, 2019 01:11 PM VA-TOBACCO QUIT 1 TO < 5 YRS [facility] Tobacco Use History This section includes a history of the smoking, or tobacco-related health factors, that were collected on or before the date of the Encounter. The data comes from the [place] facility where the Encounter took place. Date/Time Smoking Status/Tobacco Use Comment [facility] it Jun 21, 2019 01:11 PM [place]-TOBACCO QUIT 1 TO < 5 YRS [facility] Encounter Notes: All associated encounter notes This section contains the clinical notes associated to the Encounter. Date/Time Encounter Note(s) Provider Source July 23, 2019 12:18 PM TELEHEALTH NOTE: SAGE CHOUDHARY [facility] LOCAL TITLE: VIDEO-CONNECT NOTE STANDARD TITLE: TELEHEALTH NOTE DATE OF NOTE: JULY 23, 2019@12:18 ENTRY DATE: JULY 23, 2019@12:18:19 AUTHOR: SAGE CHOUDHARY EXP COSIGNER: URGENCY: STATUS: COMPLETED [facility] Video Connect appointment: Provider confirmed that Herscher is currently loc ated at the following address listed in their CPRS chart. [address] [place] [address] [id number] e-911: Call [phone] to speak with an agent who can put you in touch with a plating tank operator at the Patient's location. Y ou must have the physical location (address) where the Patient is currentl y located. Verbal informed consent has been obtained. Duration of session: 33-45 minutes Mr. Lockhart stated that he has been doing better re cently, expressing that he feels that he has passed through the funk. He s tated that reflecting back, he feels like his mood has been much better sin e the end of last week (estimating around the ). He stated that hi s intrusive memories of deployment have down, but noted that he con tinues to have an occasional nightmare. He stated that he feels that he is a ble to communicate better and is also less irritable and more patient with oth ers. He discussed this time period as a period of self-reflection on the pas t few weeks in which he is recognizing what he did well and what he wants t o try to change for the next funk he encounters. He stated that he has been trying to remain more in the moment and using his free time to engage more in outdoor activities which has been very helpful for him. Mr. Lockhart denied any current SI, HI, [...] a meani ngful life. Follow-up scheduled for 09 August 2019 via [facility]. 2. Mr. Lockhart is not available for group therapy at this time. 3. Mr. Macdonald will continue psychiatric medicatio n management with Misti Coyle. 4. Mr. Macdonald expressed an understanding of crisi s management options--to include [facility], walk-in to [facility] psychiatric emergency room, or local crisis management [facility] was given the clinician's contact inform ation as well as the contact numbers listed below: Yes Contact numbers: * [facility] ([facility]: 8am - 4pm): Telephone#: [phone] Ext [phone] or [phone] Ext [phone] * After hours: Telephone#: [phone] ext [phone] Or if an emergency call: 911 * [employer] Crisis Hotline (available 24 hours 7 days a week): Telephone#: [phone] Press 1 Text: [id number] [place] Suicide Severity Rating Scale (C-SSRS) screener 1. [...] due to responses to othe r questions. /es/ Sage Choudhary CONCRETE PIPE PLANT SUPERVISOR Addictions Therapist Signed: 07/23/2019 12:45
--- OUTSIDE RECORDS SUMMARY | 2020-05-16 12:50 | XMS_ITS | Encounter Summary ---
:1985 Author Organization [address] of [facility] rs Address [address] [place] [address] Care Team Providers Name Role Phone CHEN KUMAR Primary Care Provider Unavailable Selected Encounter This section includes the information on record at [place] for the Encounter. Date/Time Encounter Type Encounter Description Reason Provider Source Sep 24, 2019 12:05 Outpatient Encounter COMMUNITY CARE PM CONSULT IHE Encounter Template Text not used by [place] Plan of Treatment: Future Appointments (+ 6 months) and Future Tests (+/- 45 days) The Plan of Treatment section includes future care activities for the patient from all [place] treatment facilities. This section includes future appointments and future orders which are active, pending or scheduled.Future Appointments This section includes appointments that were scheduled to occur 6 months from the date of the Encounter, up to a maximum of 20 appointments. The data comes from [facility] [place] [facility] Appointment Date/Time Appointment Type Appointment Facili ty Name Oct 30, 2019 08:30 AM [place] [facility] Nov 28, 2019 10:00 AM [place] [facility] Dec 17, 2019 03:00 PM [place] [facility] Jan 27, 2020 03:00 PM [place] [facility] Jan 31, 2020 09:00 AM [place] [facility] Feb 05, 2020 03:30 PM [place] [facility] Feb 18, 2020 01:30 PM [place] [facility] Feb 24, 2020 06:00 PM [place] [facility] Mar 02, 2020 02:30 PM AMBULATORY - MEDICINE [facility] Mar 02, 2020 03:30 PM AMBULATORY - MEDICINE [facility] Social History: Smoking Status (Most current) and Tobacco Use (All prior to encounter date) This section includes the most current, and the historical, smoking and tobacco-related health factors from the [place] facility where the Encounter took place.Current Smoking Status This section includes the most current smoking, or tobacco-related health factor, from the [place] facility where the Encounter took place. Date/Time Current Smoking Status Comment Facility Oct 26, 2018 08:43 AM LIFETIME NON-TOBACCO USER [facility] Tobacco Use History This section includes a history of the smoking, or tobacco-related health factors, that were collected on or before the date of the Encounter. The data comes from the [facility] where the Encounter took place. Date/Time Smoking Status/Tobacco Use Comment [facility] May 04, 2017 11:15 AM LIFETIME NON-TOBACCO [...] Encounter Note(s) Provider Source Sep 24, 2019 12:05 PM NONVA NOTE: WILDER FUNK [facility] LOCAL TITLE: COMMUNITY CARE ADMINISTRATIVE NOTE [facility] STANDARD TITLE: NONVA NOTE DATE OF NOTE: SEP 24, 2019@12:05 ENTRY DATE: SEP 24, 2019@12:05:53 AUTHOR: WILDER FUNK EXP COSIGNER: URGENCY: STATUS: COMPLETED Beattie has a follow-up appt. with Dr Nj and will need a new referral because his consult will have . CCS-Community Care Appointment has been schedule d. CCD-Community Care Appointment Date: 11/28/2019 @ 10:00 AM CCP-Community Care Provider: Time approximate. Referral Number: [id number] Priority: Routine Referral Issue Date: 2018-08-29 Expiration Date: 2019-11-27 First Appointment Date: 2018-12-17 /bianca/ WILDER FUNK MSA Signed: 09/24/2019 12:07 Receipt Acknowledged By: 09/25/2019 13:56 /es/ GILMAR BLOUNT APRN
--- OUTSIDE RECORDS SUMMARY | 2020-05-16 12:51 | XMS_ITS | Encounter Summary ---
:1985 Author Organization [facility] rs Address [address] [place] [address] Care Team Providers Name Role Phone CHEN KUMAR Primary Care Provider Unavailable Selected Encounter This section includes the information on record at [place] for the Encounter. Date/Time Encounter Type Encounter Description Reason Provider Source May 17, 2019 11:46 Outpatient Encounter PRIMARY CARE/MEDICINE AM IHE Encounter Template Text not used by [place] Plan of Treatment: Future Appointments (+ 6 months) and Future Tests (+/- 45 days) The Plan of Treatment section includes future care activities for the patient from all [place] treatment facilities. This section includes future appointments and future orders which are active, pending or scheduled.Future Appointments This section includes appointments that were scheduled to occur 6 months from the date of the Encounter, up to a maximum of 20 appointments. The data comes from all [place] [facility] Appointment Date/Time Appointment Type Appointment Facili ty Name May 24, 2019 08:00 AM [place] [facility] Jun 24, 2019 03:15 PM AMBULATORY - PSYCHIATRY [facility] July 01, 2019 11:00 AM [facility] July 02, 2019 01:30 PM [place] [facility] July 10, 2019 01:00 PM AMBULATORY - PS[facility]CHIATRY [facility] [place] July 23, 2019 12:15 PM AMBULATORY - PS[facility]CHIATRY [facility] [place] Aug 09, 2019 12:00 PM [facility] Oct 30, 2019 08:30 AM [facility] - MEDICINE [facility] Social History: Smoking Status (Most current) and Tobacco Use (All prior to encounter date) This section includes the most current, and the historical, smoking and tobacco-related health factors from the [place] facility where the Encounter took place.Current Smoking Status This section includes the most current smoking, or tobacco-related health factor, from the [place] facility where the Encounter took place. Date/Time Current Smoking Status Comment Facility Oct 26, 2018 08:43 AM LIFETIME NON-TOBACCO USER [facility] Tobacco Use History This section includes a history of the smoking, or tobacco-related health factors, that were collected on or before the date of the Encounter. The data comes from the [place] facility where the Encounter took place. Date/Time Smoking Status/Tobacco Use Comment [facility] May 04, 2017 11:15 AM LIFETIME NON-TOBACCO USER [facility] Aug 24, 2016 03:16 PM QUIT TOBACCO USE > 7 YEARS AGO [facility] Oct 13, 2015 09:41 AM V1-PT THINKING ABOUT QUIT [facility] TOBACCO USE May 06, 2015 04:02 PM QUIT TOBACCO USE IN PAST YEAR [facility] Oct 15, 2014 11:30 AM V1-PT NOT INTERESTED IN QUIT [facility] TOBACCO USE Oct 01, 2013 08:26 AM QUIT TOBACCO USE IN PAST YEAR [facility] Encounter Notes: All associated encounter notes This section contains the clinical notes associated to the Encounter. Date/Time Encounter Note(s) Provider Source May 17, 2019 11:46 AM PRIMARY CARE TELEPHONE ENCOUNTER NOTE: KIET LOPEZ V [facility] LOCAL TITLE: Telephone Note-Primary Care STANDARD TITLE: PRIMARY CARE TELEPHONE ENCOUNTER NOTE DATE OF NOTE: MAY 17, 2019@11:46 ENTRY DATE: MAY 17, 2019@11:46:39 AUTHOR: KIET LAGUERRE V EXP COSIGNER: URGENCY: STATUS: COMPLETED Telephone Note-Primary Care Has ADDENDA * Call to r/s due to emerging COVID-19 pandemic. As per outpatient clinic guidance, nursing has b een assigned to triage and determine clinical urgency. Patient agreeable to Telephone Clinic Visit with PCP. Denies any acute issues at this time. Please schedule accordingly. Work Phone: NONE Cell phone: /es/ KIET LAGUERRE REGISTERED NURSE Signed: 05/17/2019 11:48 Receipt Acknowledged By: 05/21/2019 08:45 /es/ HARSHA STREETWOOD Medical Support [facility] 05/20/2019 11:46 /es/ TERESA KEATING 05/24/2019 ADDENDUM STATUS: COMPLETED called the number at assigned time. no answer /es/ GILMAR BLOUNT APRN Signed: 05/24/2019 08:20
== END 2020-05-16 13:51 | disposition home or self-care (01) ==
PROVIDERS: Emergency Provider Physician Assistant
DX: U07.1 COVID-19 (principal); R50.9 Fever, unspecified; R05 Cough; M79.18 Myalgia, other site
CPT/HCPCS: 36415; 80053; 87635; 96361; 96374; 96375; 99284; 71045; 81003; 85025; J1100; J1885

== ENCOUNTER 2021-09-07 01:59 | Outpatient (CLI) | payer OTHER, SELFPAY ==
--- NOTE | 2021-09-07 09:12 | DI.RAD_ITS ---
Exam(s) XR FOOT LT COMPLETE XR ANKLE LT COMPLETE EXAM: XR FOOT LT COMPLETE and XR ankle LT complete CLINICAL HISTORY: INJURY, PAIN, S99.912A. TECHNIQUE: 2D digital imaging was performed of the left foot. Six images were obtained. AP, obliqu e and lateral views were obtained. COMPARISON: CR XR ANKLE LT COMPLETE from 09/07/2021 FINDINGS: BONES: No acute fracture is present. No bony destructive lesion is seen. JOINTS: No dislocation present. The patient has a prior fusion of the DIP joint of the 3rd toe and th e PIP and DIP joints of the 2nd toe. SOFT TISSUE: Normal. IMPRESSION: No acute fracture or dislocation. DATA REPOSITORY: RADIATION DOSE DELIVERED:
== END 2021-09-07 02:19 ==
DX: S99.922A Unspecified injury of left foot, initial encounter (principal); X58.XXXA Exposure to other specified factors, initial encounter; S99.912A Unspecified injury of left ankle, initial encounter
CPT/HCPCS: 73610; 73630

== ENCOUNTER 2022-09-08 02:10 | Outpatient (CLI) | payer OTHER, SELFPAY ==
--- NOTE | 2022-09-08 | DI.MRI_ITS ---
Exam(s) MR LUMBAR SPINE WO EXAM: MR LUMBAR SPINE WO CLINICAL HISTORY: LOW BACK PAIN, SCIATICA,FECAL INCONTINENCE,[id number]. TECHNIQUE: Multiplanar multisequence MRI of the Lumbar spine was performed. COMPARISON: No exams were available for comparison FINDINGS: Five lumbar vertebrae are presumed. Conus medullaris is at normal level. There is no evidence of conus mass nor subjacent clumping of in trathecal nerve roots to suggest arachnoiditis. The distal thecal sac appears unremarkable.There is no evidence of Tarlov intrasacral cysts nor other significant findings within the sacral canal. Ther e is no scoliosis. Bones:There are no fractures nor ominous osseous lesions in the lumbar vertebral bodies and visualize d sacrum. With respect to the individual levels... T12-L1: Unremarkable L1-2: Normal disc height and signal. No disc herniation nor central canal stenosis.No foraminal steno sis L2-3: Normal disc height. No disc herniation nor central canal stenosis.No foraminal stenosis.No face t arthropathy. L3-4: Normal disc height. No disc herniation or central canal stenosis.No foraminal stenosis.No face t arthropathy. L4-5: This level exhibits mild decreased disc height anteriorly and some loss of normal disc hydratio n signal. There is symmetrical annular bulging at this level. No prominent disc herniation. Centra l canal dimensions are lower normal. There is no foraminal stenosis. Mild degenerative changes in t he facet joints. L5-S1: Normal disc height and signal. No disc herniation or central canal stenosis. No significant foraminal stenosis. No significant facet arthropathy. Soft tissues: paraspinal soft tissues appear unremarkable. IMPRESSION: 1. There are mild disc findings at L4-5 level as described above. There is, however, no prominent di sc herniation. Central canal dimensions are lower limits normal and there is no foraminal narrowing at this level nor elsewhere in the lumbosacral spinal column. DATA REPOSITORY:
== END 2022-09-08 02:30 ==
PROVIDERS: Visit Provider Internal Medicine
DX: M54.59 Other low back pain (principal); M54.30 Sciatica, unspecified side; M51.16 Intervertebral disc disorders with radiculopathy, lumbar region
CPT/HCPCS: 72148

== ENCOUNTER 2024-04-17 08:40 | Emergency (ER) | payer OTHER, SELFPAY ==
[2024-04-17 08:57] VITALS: BP 135/83; PULSE 87; RESP 20; TEMP 36.9; O2SAT 96
--- NOTE | 2024-04-17 09:07 | W.ED.GENAD ---
Discharge Plan Disposition Patient Disposition: Home Condition: Good Discharge Details Clinical Impression: Community acquired pneumonia, Sinusitis, COPD exacerbation Primary Care Provider: Dina Chatterjee ED Provider: Lucho Garcia Home Meds and New Rx's Prescriptions: New levofloxacin 750 mg tablet 750 mg PO DAILY Qty: 13 0RF prednisone 50 mg tablet 50 mg PO DAILY Qty: 5 0RF Discontinued prednisone 20 mg tablet 40 mg PO DAILY Qty: 10 0RF No Action montelukast [Singulair] 10 MG tablet 10 mg PO DAILY albuterol sulfate [ProAir HFA] 90 mcg/actuation Hfa Aerosol Inhaler 1 puff Inhalation BID Spiriva with HandiHaler 18 mcg Capsule, W/Inhalation Device 1 puff Inhalation PRN PRN Asmanex Twisthaler 220 mcg (14 doses) Aerosol Powdr Breath Activated 2 puff Inhalation BID budesonide-formoterol [Symbicort] 160-4.5 mcg/actuation Hfa Aerosol Inhaler 1 puff Inhalation DAILY Discharge Instructions Instructions: Pneumonia in adults, COPD Exacerbation, Adult ED Additional Instructions: At this time we will demonstrate infection concerning for pneumonia, sinusitis, as well as potential mild ear infection. Initially this likely started out as a viral etiology but is now demonstrating evidence of a bacterial component. Due to your allergies to penicillins we have elected to utilize an antibiotic called levofloxacin. One of the side effects is that it can cause irritation and in the worst case scenario rupture of the tendons in high impact sports. Please avoid any significant physical aggressive activity while on the medication. If you notice any pain in your joints or tendons or ligaments please avoid using the antibiotic and consulted physician immediately. Please continue taking your inhalers as prescribed. Take the steroid prednisone as prescribed. If you notice any worsening of your symptoms, or any new symptoms such as vomiting, diarrhea, fever, chills, shortness of breath, chest pain, numbness, weakness, or fainting , please return immediately to the emergency department for reevaluation. Please follow up with your primary care provider as soon as possible for reassessment and reevaluation. As always, it was a pleasure participating in your medical care today. Stand Alone Forms: Work Release Referrals: Dina Chatterjee [Primary Care Provider] - Discharge Data Discharge Date/Time-TO BE ENTERED AT DEPARTURE: 04/17/24 09:27 HPI General Date/Time Provider Initiated Documentation: 04/17/24 08:46. HPI Narrative: 38-year-old male who is [facility] with a past medical history of COPD, and an allergy to penicillins, presents today for evaluation of cough. Patient states that few weeks ago he was diagnosed with COVID, since then he has had a cough, runny nose, congestion, he has productive yellow sputum, he feels short of breath. He denies any chest pain or pleuritic chest pain. He denies any hemoptysis. He does smoke. No other complaints at this time. He does have multiple inhalers at home. No other complaints at this time. Related Data Home Medications ?Medication ?Instructions ?Recorded ?Confirmed montelukast 10 mg tablet 10 mg PO DAILY 12/12/16 05/16/20 (Singulair) albuterol sulfate 90 mcg/actuation 1 puff inhalation BID 03/31/18 05/16/20 aerosol inhaler (ProAir HFA) budesonide-formoterol HFA 160 1 puff inhalation DAILY 03/31/18 05/16/20 mcg-4.5 mcg/actuation aerosol inhaler (Symbicort) mometasone 220 mcg/actuation(14 2 puff inhalation BID 03/31/18 05/16/20 doses) breath activated powder inhaler (Asmanex Twisthaler) tiotropium bromide 18 mcg capsule 1 puff inhalation PRN PRN 03/31/18 05/16/20 with inhalation device (Spiriva with HandiHaler) levofloxacin 750 mg tablet 750 mg PO DAILY #13 tabs 04/17/24 prednisone 50 mg tablet 50 mg PO DAILY #5 tabs 04/17/24 Previous Rx's ?Medication ?Instructions ?Recorded levofloxacin 750 mg tablet 750 mg PO DAILY #13 tabs 04/17/24 prednisone 50 mg tablet 50 mg PO DAILY #5 tabs 04/17/24 Allergies Allergy/AdvReac Type Severity Reaction Status Date / Time Penicillins Allergy Intermediate Hives Unverified 04/17/24 09:00 General Stated Complaint: RespSymp JUS: 4 Exam Narrative Exam Narrative: 1.Const: Well-nourished, Well-developed, appearing stated age 2.Eyes: PERRL, no conjunctival injection, and symmetrical lids. 3.ENT: Atraumatic external nose and ears. Moist MM. Neck: Symmetric, trachea midline, No thyromegaly. Tenderness and pressure over the frontal and maxillary sinuses. Mild erythema in the left otic canal but no effusion behind the tympanic membranes. 4.CVS: +S1/S2, Peripheral pulses 2+ and equal in all extremities. Brisk capillary refill in all extremities. 5.RESP: Unlabored respiratory effort. Mild wheezes and rhonchi with minimal crackles at bases. 6.GI: Soft, Nontender/Nondistended, No hepatosplenomegaly. No guarding or rebound. 7.MSK: Normocephalic/Atraumatic, Extremities w/o deformity or ttp No cyanosis or clubbing, Normal movement of all extremities 8.Skin: Warm, Dry. No rashes or lesions. 9.Neuro: punch press setter II-XII grossly intact. Sensation grossly intact, no focal neurologic deficits. 10.Psych: (AAO) x3. Appropriate mood and affect Course Vital Signs Vital signs: Vital Signs Temperature 36.9 C 04/17/24 08:57 Pulse 87 04/17/24 08:57 Respiratory Rate 20 04/17/24 08:57 Blood Pressure 135/83 04/17/24 08:57 Pulse Oximetry 96 04/17/24 08:57 Temperature 36.9 C 04/17/24 08:57 Temperature Source Oral 04/17/24 08:57 Pulse 87 04/17/24 08:57 Respiratory Rate 20 04/17/24 08:57 Blood Pressure 135/83 04/17/24 08:57 Blood Pressure Position Sitting 04/17/24 08:57 Pulse Oximetry 96 04/17/24 08:57 Oxygen Delivery Method Room Air 04/17/24 08:57 Oxygen Flow Rate 0 04/17/24 08:57 Pain Level 3 04/17/24 08:57 Medical Decision Making 38-year-old male who is [facility] with a past medical history of COPD, and an allergy to penicillins, presents today for evaluation of cough. Patient states that few weeks ago he was diagnosed with COVID, since then he has had a cough, runny nose, congestion, he has productive yellow sputum, he feels short of breath. He denies any chest pain or pleuritic chest pain. He denies any hemoptysis. He does smoke. No other complaints at this time. He does have multiple inhalers at home. No other complaints at this time. Exam demonstrates mild erythema in the left otic canal, but no effusion behind the tympanic membranes. Notable tenderness over the frontal and maxillary sinuses, mild wheezes and rhonchi with minimal crackles for the lungs. Concern for bronchitis/early pneumonia, clinical evidence of sinusitis, and early otitis infection. Patient would benefit from antibacterial therapy, with his allergies to penicillin, and the need for sinus coverage we will choose Levaquin. I had a long discussion with him about the risks and benefits of fluoroquinolones including with tendinopathy. Patient understands this. Patient will be given prescription for levofloxacin, recommend continuation of his inhalers. We will give a short course of prednisone for his reactive airway disease. Discussed red flags for which to return. I have extensively reviewed the treatment plan and discharge instructions with the patient. I have addressed all patient concerns at this time. The patient was made aware of what symptoms to monitor for that would warrant a return to the emergency department. Discussed the plan with the patient, they demonstrate verbal understanding and agreement with our assessment and plan at this time. The documentation in this chart was dictated using [employer] dictation software. Please excuse any dictation errors. Quality:SDOH Health Related Social Needs: No Data to Display PFSH All Active Problems (Updated 04/17/24 @ 09:08 by Lucho Garcia DO) COPD exacerbation (Acute) Sinusitis (Acute) Community acquired pneumonia (Acute) COVID-19 (Acute) Medical History (Updated 04/17/24 @ 09:08 by Lucho Garcia DO) Emphysema lung after exposure in [facility] Asthma Social History Smoking/Tobacco Use Status: Former Tobacco Use Smoking risk assessment performed?: Yes Alcohol Intake: current Alcohol Intake frequency: a few times a week Alcohol type: beer Drug use: Socially Substance use type: marijuana Do you feel safe at home: Yes Do you feel safe in your relationship?: Yes
[2024-04-17] MEDS: levoFLOXacin 500 MG, levoFLOXacin 250 MG 750 MG PO (09:17)
[2024-04-17] MEDS: predniSONE 20 MG TAB 60 MG PO (09:17)
== END 2024-04-17 09:27 | disposition home or self-care (01) ==
PROVIDERS: Emergency Provider Student in an Organized Health Care Education/Training Program
DX: J18.9 Pneumonia, unspecified organism (principal); J44.1 Chronic obstructive pulmonary disease with (acute) exacerbation; J01.40 Acute pansinusitis, unspecified; H66.92 Otitis media, unspecified, left ear; Z87.891 Personal history of nicotine dependence
CPT/HCPCS: 99283; J7512

== ENCOUNTER 2024-07-23 09:27 | Emergency (ER) | payer OTHER, SELFPAY ==
[2024-07-23 09:41] VITALS: BP 135/83; PULSE 107; RESP 20; TEMP 36.6; O2SAT 96
--- NOTE | 2024-07-23 09:45 | W.ED.GENAD ---
Discharge Plan Disposition Patient Disposition: Home Discharge Details Clinical Impression: URI (upper respiratory infection), Acute asthma Primary Care Provider: Dina Chatterjee ED Provider: Abran Alegria Home Meds and New Rx's Prescriptions: Continued montelukast [Singulair] 10 MG tablet 10 mg PO DAILY albuterol sulfate [ProAir HFA] 90 mcg/actuation Hfa Aerosol Inhaler 1 puff Inhalation BID tiotropium bromide [Spiriva with HandiHaler] 18 mcg Capsule, W/Inhalation Device 1 puff Inhalation PRN PRN Asmanex Twisthaler 220 mcg (14 doses) Aerosol Powdr Breath Activated 2 puff Inhalation BID budesonide-formoterol [Symbicort] 160-4.5 mcg/actuation Hfa Aerosol Inhaler 1 puff Inhalation DAILY Discharge Instructions Instructions: Asthma in adults, Viral Upper Respiratory Infection, Adult (DC) Additional Instructions: You are seen in the emergency department for your cough and runny nose. You are having an exacerbation of your asthma for which you are receiving steroids. You will receive a call if your viral swab is positive for COVID flu or RSV. Please return to emergency department as we discussed if you develop chest pain difficulty breathing or cannot eat or drink. Discharge Data Discharge Date/Time-TO BE ENTERED AT DEPARTURE: 07/23/24 10:49 HPI General Date/Time Provider Initiated Documentation: 07/23/24 09:45. HPI Narrative: MDM This is a quite well-appearing initially tachycardic but normothermic 39-year-old male with URI symptoms for which he received a swab for COVID influenza and RSV which were fortunately all negative. Patient does have mildly prolonged expiratory phase. He has been using his inhaler more which certainly could explain his tachycardia. He will be treated for acute exacerbation of asthma with steroids. His uvula is midline so I am not suspicious for peritonsillar abscess. Good range of motion in neck so I am not suspicious for retropharyngeal abscess. I considered sepsis however patient's tachycardia resolved without intervention and he was normotensive so I did not feel that he required broad-spectrum antibiotics assessment of blood cultures or lactate. No nuchal rigidity to suggest meningitis. No focal lung abnormalities to suggest pneumonia. Patient is not tachypneic nor hypoxic so I do not feel he requires nebulization treatment in the emergency department. He is nontoxic so I am not suspicious for epiglottitis. Patient and I discussed that he should return to the emergency department if he did not urinate at least once every 8 hours while awake if he developed any difficulty breathing or if he had any other concerns. Otherwise I advised him to follow-up with his PCP as needed. He was discharged with an empiric trial of expectant outpatient management. HPI The patient presents for evaluation of cough and cold. He reports a persistent cough that has led to hoarseness in his voice. He has been expectorating phlegm, which is brownish-yellow in color. He also experienced a low-grade fever last night, prompting him to take Tylenol at 6:00 AM. He is not on any daily medications. He has a history of asthma and uses 4 different inhalers for management. He believes his asthma may be contributing to the prolonged duration of his current symptoms. During coughing fits, he experiences difficulty in catching his breath, necessitating the use of albuterol. Exam General: Well-appearing in no acute distress speaking in complete sentences. Head: Normocephalic, atraumatic. Eye: Extraocular eye movements intact. No conjunctival injection. No scleral icterus. Ear, nose, mouth, throat: Grossly normal inspection. Normal voice, handling secretions normally. Left TM with small dull effusion. No bulging. No mastoid tenderness bilaterally. Uvula midline. No significant posterior oropharynx erythema. Neck: Trachea midline. No nuchal rigidity. Cardiovascular: Well-perfused distal extremities. Respiratory: Nonlabored respiration. Mild bilateral wheezes. Mildly prolonged expiratory phase. Gastrointestinal: Nondistended abdomen. Musculoskeletal: No edema. Moving all 4 extremities spontaneously. Skin: Normal for age and race, grossly normal temperature and turgor. No acute rash. Neurologic: Alert and appropriate, no apparent acute deficits. Psychiatric: Mood and manner are appropriate. Grooming and personal hygiene are appropriate. Related Data Home Medications ?Medication ?Instructions ?Recorded ?Confirmed montelukast 10 mg tablet 10 mg PO DAILY 12/12/16 07/23/24 (Singulair) albuterol sulfate 90 mcg/actuation 1 puff inhalation BID 03/31/18 07/23/24 aerosol inhaler (ProAir HFA) budesonide-formoterol HFA 160 1 puff inhalation DAILY 03/31/18 07/23/24 mcg-4.5 mcg/actuation aerosol inhaler (Symbicort) mometasone 220 mcg/actuation(14 2 puff inhalation BID 03/31/18 07/23/24 doses) breath activated powder inhaler (Asmanex Twisthaler) tiotropium bromide 18 mcg capsule 1 puff inhalation PRN PRN 03/31/18 07/23/24 with inhalation device (Spiriva with HandiHaler) Allergies Allergy/AdvReac Type Severity Reaction Status Date / Time Penicillins Allergy Intermediate Hives Unverified 07/23/24 09:42 General Stated Complaint: RespSymp JUS: 4 Course Vital Signs Vital signs: Vital Signs Temperature 36.6 C 07/23/24 09:41 Pulse 107 H 07/23/24 09:41 Respiratory Rate 20 07/23/24 09:41 Blood Pressure 135/83 07/23/24 09:41 Pulse Oximetry 96 07/23/24 09:41 Temperature 36.6 C 07/23/24 09:41 Temperature Source Oral 07/23/24 09:41 Pulse 107 H 07/23/24 09:41 Respiratory Rate 20 07/23/24 09:41 Blood Pressure 135/83 07/23/24 09:41 Blood Pressure Position Sitting 07/23/24 09:41 Pulse Oximetry 96 07/23/24 09:41 Oxygen Delivery Method Room Air 07/23/24 09:41 Oxygen Flow Rate 0 07/23/24 09:41 Medical Decision Making Quality:SDOH Health Related Social Needs: No Data to Display PFSH All Active Problems (Updated 07/23/24 @ 10:09 by Abran Alegria MD) Acute asthma (Acute) URI (upper respiratory infection) (Acute) COVID-19 (Acute) Medical History (Updated 07/23/24 @ 10:09 by Abran Alegria MD) Emphysema lung after exposure in [facility] Asthma Social History Smoking/Tobacco Use Status: Former Tobacco Use Smoking risk assessment performed?: Yes Alcohol Intake: current Alcohol Intake frequency: a few times a week Alcohol type: beer Drug use: Socially Substance use type: marijuana Do you feel safe at home: Yes Do you feel safe in your relationship?: Yes
[2024-07-23] MEDS: predniSONE 20 MG TAB 60 MG PO (10:25)
[2024-07-23 10:26] VITALS: PULSE 93; RESP 16; O2SAT 98
[2024-07-23 11:10] LABS: COVID-19 PCR Negative (Negative); Influenza A PCR Negative (Negative); Influenza B PCR Negative (Negative); RSV PCR Negative (Negative)
[2024-07-23 11:12] LABS: Source Nasopharynx
== END 2024-07-23 10:49 | disposition home or self-care (01) ==
LOC: ER 10:42
PROVIDERS: Emergency Provider Emergency Medicine
DX: J06.9 Acute upper respiratory infection, unspecified (principal); J45.909 Unspecified asthma, uncomplicated; Z87.891 Personal history of nicotine dependence
CPT/HCPCS: 87637; 99283; J7512